=== PATIENT | male | born 1995 ===

== ENCOUNTER 2017-03-23 17:42 | Inpatient (IN) | payer MEDICAID ==
[2017-03-23 17:53] VITALS: BMI 29.5
[2017-03-23] MEDS ORDERED: Sodium Chloride 0.9% 1,000 ML IV STA (18:08)
--- NOTE | 2017-03-23 18:16 | ED PDOC ---
Arrival/HPI - General Chief Complaint: Abdominal Pain Time Seen by Provider: 03/23/17 17:56 Historian: Patient - History of Present Illness Narrative History of Present Illness (Text): 03/23/17 18:03 Zach Martinez is a 22 year old male who presents to the emergency department complaining of abdominal pain associated with blood streaked vomit and weakness for the past two days. Patient also notes that he feels dizzy at times since yesterday. Patient denies any diarrhea, hematochezia, fever, vomiting, urinary symptoms, or any other complaints at this time. PMD: Dr. Condon Time/Duration: < week Symptom Onset: Gradual Symptom Course: Unchanged Severity Level: Moderate Activities at Onset: Rest Context: Home Past Medical History - Provider Review Nursing Documentation Reviewed: Yes - Infectious Disease Hx of Infectious Diseases: None - Psychiatric Hx Substance Use: Yes - Anesthesia Hx Anesthesia: No Family/Social History - Physician Review Nursing Documentation Reviewed: Yes Family/Social History: No Known Family HX Smoking Status: Never Smoked Hx Alcohol Use: Yes Frequency of alcohol use: Socially Hx Substance Use: Yes Substance used: marijuana Allergies/Home Meds Allergies/Adverse Reactions: Allergies No Known Allergies Allergy (Verified 03/23/17 17:52) Home Medications: Home Meds Medication Instructions Recorded Confirmed Multivitamin [Multivitamins] 1 cap PO DAILY 03/23/17 03/23/17 Review of Systems - Physician Review All systems were reviewed & negative as marked: Yes - Review of Systems Constitutional: Other (Generalized weakness) Eyes: absent: Vision Changes ENT: absent: Hearing Changes Respiratory: absent: SOB Cardiovascular: absent: Chest Pain Gastrointestinal: Abdominal Pain, Hematemesis Genitourinary Male: absent: Dysuria Musculoskeletal: absent: Arthralgias Skin: absent: Rash Neurological: absent: Headache, Dizziness Endocrine: absent: Diaphoresis Hemo/Lymphatic: absent: Adenopathy Psychiatric: absent: Anxiety Physical Exam Vital Signs Reviewed: Yes Vital Signs Temp Pulse Resp BP Pulse Ox 03/23/17 21:42 72 18 130/82 100 03/23/17 17:54 98.8 F 70 18 132/85 100 Temperature: Afebrile Blood Pressure: Normal Pulse: Regular Respiratory Rate: Normal Appearance: Positive for: Ill-Appearing Pain Distress: Mild Mental Status: Positive for: Alert and Oriented X 3 - Systems Exam Head: Present: Atraumatic, Normocephalic Pupils: Present: PERRL Conjunctiva: Present: Normal Mouth: Present: Moist Mucous Membranes Pharnyx: Present: Normal. No: ERYTHEMA, EXUDATE Neck: Present: Normal Range of Motion Respiratory/Chest: Present: Clear to Auscultation, Good Air Exchange. No: Respiratory Distress, Accessory Muscle Use Cardiovascular: Present: Regular Rate and Rhythm, Normal S1, S2. No: Murmurs Abdomen: Present: Tenderness (diffuse abdominal tenderness to palpation) Back: Present: Normal Inspection Upper Extremity: Present: Normal Inspection. No: Cyanosis, Edema Lower Extremity: Present: Normal Inspection. No: Edema Neurological: Present: GCS=15, CN II-XII Intact, Speech Normal Skin: Present: Warm, Dry, Normal Color. No: Rashes Psychiatric: Present: Alert, Oriented x 3, Normal Insight, Normal Concentration Medical Decision Making ED Course and Treatment: 03/23/17 18:03 Impression: 22 year old male complaining of diffuse abdominal pain with associated hematemesis, syncopal symptoms, and weakness for a few days. Plan: -- Abdomen and Pelvis CT with contrast -- Urinalysis -- Labs -- Pepcid, Zofran, and IV fluids -- Reassess and disposition Progress Notes: 03/23/17 21:[address] with contrast: Creator : Praveen Alan MD FINDINGS: Lower thorax: No acute findings. ABDOMEN: Liver: Unremarkable. No mass. Gallbladder and bile ducts: No calcified stones. No ductal dilation. Pancreas: No ductal dilation. No mass. Spleen: No splenomegaly. Adrenals: No mass. Kidneys and ureters: 1.1 x 1.1 x 1.1 cm lesion within RIGHT kidney, indeterminate by CT criteria. No hydronephrosis. Stomach and bowel: Mild mural thickening vs underdistention distal body/antrum of stomach. No definite bowel wall thickening. No obstruction. Appendix: Borderline enlarged appendix, 6-7 mm in diameter. No associated inflammatory stranding. PELVIS: Bladder: Unremarkable. Reproductive: Unremarkable as visualized. ABDOMEN and PELVIS: Intraperitoneal space: No significant fluid collection. No free air. Bones/joints: No acute fracture. Soft tissues: Unremarkable. Vasculature: Unremarkable. No aneurysm. Lymph nodes: No pathologically enlarged lymph nodes. IMPRESSION: 1. Borderline enlarged appendix. No inflammation. Clinical correlation is needed. 2. Gastric wall thickening vs underdistention. Clinical correlation is needed. 3. Kidney lesion, indeterminate. Recommend nonemergent ultrasound or MRI. 4. Incidental/non-acute findings are described above. 03/23/17 22:35 Patient with noted history. Given zofran, pepcid, and IVF with no improvement in pain though improved nausea. Labs with WBC of 9.9K with neutrophilia. CT results with enlarged appendix though periappendiceal area appears uninflamed. Patient continuing to be tender in the RLQ, specifically. Case discussed with surgical supply assistant, who evaluated the patient. 03/23/17 22:39 Patient will be placed on Dr. Crocker's service. IV antibiotics administered. - Lab Interpretations Lab Results: 03/23/17 18:35 03/23/17 18:35 Lab Results 03/23/17 18:35: Sodium 140, Potassium 3.9, Chloride 100, Carbon Dioxide 30, Anion Gap 14, BUN 15, Creatinine 1.0, Est GFR ( Amer) > 60, Est GFR (Non- Af Amer) > 60, Random Glucose 86, Calcium 9.4, Total Bilirubin 0.7, AST 27, ALT 27, Alkaline Phosphatase 61, Total Protein 7.5, Albumin 4.3, Globulin 3.2, Albumin/Globulin Ratio 1.3, Amylase 79, Lipase 18 L 03/23/17 18:35: Urine Color Yellow, Urine Appearance Clear, Urine pH 6.5, Ur Specific [place] 1.010, Urine Protein Negative, Urine Glucose (UA) Negative, Urine Ketones 15 H, Urine Blood Negative, Urine Nitrate Negative, Urine Bilirubin Negative, Urine Urobilinogen 0.2, Ur Leukocyte Esterase Negative 03/23/17 18:35: PT 11.3, INR 1.05, APTT 28.7 03/23/17 18:35: WBC 9.9, RBC 5.22, Hgb 16.2, Hct 45.8, MCV 87.7, MCH 31.0, MCHC 35.4, RDW 12.5, Plt Count 286, MPV 9.3, Gran % 73.0 H, Lymph % (Auto) 19.5 L, [place] % (Auto) 6.7 H, Eos % (Auto) 0.6 L, Baso % (Auto) 0.2, Gran # 7.20 H, Lymph # 1.9, [place] # 0.7 H, Eos # 0.1, Baso # 0.02 I have reviewed the lab results: Yes - RAD Interpretation Radiology Orders: 03/23/17 18:09 ABD & PELVIS IV CONTRAST ONLY [CT] Stat - Medication Orders Current Medication Orders: Metronidazole (Flagyl) 100 mls @ 100 mls/hr IVPB STAT STA PRN Reason: Protocol Stop: 03/23/17 23:24 Ceftriaxone Sodium (Rocephin 1 Gram Ivpb) 100 mls @ 200 mls/hr IV ONCE STA PRN Reason: Protocol Stop: 03/23/17 22:54 Discontinued Medications Famotidine (Pepcid) 20 mg IVP STAT STA Stop: 03/23/17 18:09 Last Admin: 03/23/17 18:47 Dose: 20 mg Sodium Chloride (Sodium Chloride 0.9%) 1,000 mls @ 1,000 mls/hr IV .Q1H STA Stop: 03/23/17 19:07 Last Admin: 03/23/17 18:46 Dose: 1,000 mls/hr Iohexol (Omnipaque 350 100 Ml) Confirm Administered Dose 350 mg .ROUTE .STK-MED ONE Stop: 03/23/17 20:09 Ondansetron HCl (Zofran Inj) 4 mg IVP STAT STA Stop: 03/23/17 18:10 Last Admin: 03/23/17 18:47 Dose: 4 mg - Scribe Statement The provider has reviewed the documentation as recorded by the Lisa Caballero Provider Scribe Attestation: All medical record entries made by the Lisa were at my direction and personally dictated by me. I have reviewed the chart and agree that the record accurately reflects my personal performance of the history, physical exam, medical decision making, and the department course for this patient. I have also personally directed, reviewed, and agree with the discharge instructions and disposition. Disposition/Present on Arrival - Present on Arrival Any Indicators Present on Arrival: No History of DVT/PE: No History of Uncontrolled Diabetes: No Urinary Catheter: No History of Decub. Ulcer: No History Surgical Site Infection Following: None - Disposition Have Diagnosis and Disposition been Completed?: Yes Diagnosis: Appendicitis Disposition: HOSPITALIZED Disposition Time: 22:20 Patient Plan: Observation Condition: FAIR Referrals: Tex Condon, ANSELMO, CLINICAL SERVICES ASSISTANT [Primary Care Provider] - Follow up with primary
[2017-03-23 18:49] LABS: ADD MANUAL DIFF? NO
[2017-03-23 18:55] LABS: BASO # 0.02 K/mm3 (0.0-2.0); BASO % 0.2 % (0.0-3.0); EOS # 0.1 (0.0-0.7); EOS % 0.6 % (1.5-5.0); HEMATOCRIT 45.8 % (42.0-52.0); LYMPH # 1.9 (1.2-3.4); LYMPH % 19.5 % (22.0-35.0); MEAN CELL VOLUME 87.7 fL (80.0-105.0); MEAN CORPUSCULAR HGB CONC 35.4 g/dl (31.0-37.0); MEAN PLATELET VOLUME 9.3 fl (7.0-11.0); MONO # 0.7 (0.1-0.6); MONO % 6.7 % (1.0-6.0); PLATELET COUNT 286 10^3/uL (120.0-450.0); RED CELL DISTRIBUTION WIDTH 12.5 % (11.5-14.5); WHITE BLOOD COUNT 9.9 10^3/ul (4.5-11.0)
[2017-03-23 19:01] LABS: INR 1.05 (0.93-1.08); PARTIAL THROMBOPLASTIN TIME 28.7 Seconds (23.7-30.8)
[2017-03-23 19:05] LABS: ALB/GLOB RATIO 1.3 (1.1-1.8); ALKALINE PHOSPHATASE 61 U/L (38-133); ALT/SGPT 27 U/L (7-56); AMYLASE 79 U/L (35-125); AST/SGOT 27 U/L (15-59); BILIRUBIN,TOTAL 0.7 mg/dL (0.2-1.3); BLOOD UREA NITROGEN 15 mg/dL (7-21); CALCIUM 9.4 mg/dL (8.4-10.5); CARBON DIOXIDE 30 mmol/L (21-33); CHLORIDE 100 mmol/L (98-107); GFR AFRICAN-AMERICAN > 60; GLUCOSE,RANDOM 86 mg/dL (70-110); LIPASE 18 U/L (23-300); POTASSIUM 3.9 mmol/L (3.6-5.0); SODIUM 140 mmol/L (132-148); TOTAL PROTEIN 7.5 g/dL (5.8-8.3)
[2017-03-23] MEDS ORDERED: Iohexol 350 MG/100 ML VIAL ONE (20:08)
--- NOTE | 2017-03-23 21:11 | CT ---
EXAM: CT Abdomen and Pelvis With Intravenous Contrast CLINICAL HISTORY: 22 years old, male; Pain; Abdominal pain; Acute; Additional info: Abd pain, vomiting TECHNIQUE: Axial computed tomography images of the abdomen and pelvis with intravenous contrast. This CT exam was performed using one or more of the following dose reduction techniques: automated exposure control, adjustment of the mA and/or kV according to patient size, and/or use of iterative reconstruction technique. Coronal and sagittal reformatted images were created and reviewed. CONTRAST: 100 mL of OMNI 350 administered intravenously. COMPARISON: No relevant prior studies available. FINDINGS: Lower thorax: No acute findings. ABDOMEN: Liver: Unremarkable. No mass. Gallbladder and bile ducts: No calcified stones. No ductal dilation. Pancreas: No ductal dilation. No mass. Spleen: No splenomegaly. Adrenals: No mass. Kidneys and ureters: 1.1 x 1.1 x 1.1 cm lesion within RIGHT kidney, indeterminate by CT criteria. No hydronephrosis. Stomach and bowel: Mild mural thickening vs underdistention distal body/antrum of stomach. No definite bowel wall thickening. No obstruction. Appendix: Borderline enlarged appendix, 6-7 mm in diameter. No associated inflammatory stranding. PELVIS: Bladder: Unremarkable. Reproductive: Unremarkable as visualized. ABDOMEN and PELVIS: Intraperitoneal space: No significant fluid collection. No free air. Bones/joints: No acute fracture. Soft tissues: Unremarkable. Vasculature: Unremarkable. No aneurysm. Lymph nodes: No pathologically enlarged lymph nodes. IMPRESSION: 1. Borderline enlarged appendix. No inflammation. Clinical correlation is needed. 2. Gastric wall thickening vs underdistention. Clinical correlation is needed. 3. Kidney lesion, indeterminate. Recommend nonemergent ultrasound or MRI. 4. Incidental/non-acute findings are described above.
[2017-03-23 22:19] LABS: PH,URINE 6.5 (4.7-8.0); URINE BILIRUBIN NEGATIVE (NEGATIVE); URINE BLOOD NEGATIVE (NEGATIVE); URINE GLUCOSE (UA) NEGATIVE (NEGATIVE); URINE KETONE 15 mg/dL (NEGATIVE); URINE LEUKOCYTE ESTERASE NEGATIVE Leu/uL (NEGATIVE); URINE PROTEIN NEGATIVE mg/dL (<30 mg/dL); URINE UROBILINOGEN 0.2 E.U./dL (<1 E.U./dL)
[2017-03-23 22:25] LABS: URINE APPEARANCE CLEAR (CLEAR); URINE COLOR YELLOW (YELLOW)
[2017-03-23] MEDS ORDERED: metroNIDAZOLE IV 500 mg/100 ml 500 MG/100 ML BAG IVPB STA (22:25)
[2017-03-23] MEDS ORDERED: cefTRIAXone 1 gm 1 GM/100 ML BAG IV STA (22:25)
--- NOTE | 2017-03-23 23:13 | CP.PCM.HP ---
History of Present Illness - History of Present Illness History of Present Illness: SURGERY HISTORY AND PHYSICAL 22M presents to [facility] for abdominal pain that started on Wednesday. Patient states the pain was diffused but more towards the center of his abdomen. He states the pain never went away but was increasing in intensity during this period of time. He states the pain is associated with nausea/ vomiting. Vomit content includes lots of clear fluid with some blood tinge. He denies eating anything out the ordinary, denies trauma, denies fevers, diarrhea , constipation. Upon coming to the ED he states the pain is more on the right lower abdomen now. PMH: denies PSH: denies Social: Admits social alcohol, denies tobacco abuse Allergies: NKDA Present on Admission - Present on Admission Any Indicators Present on Admission: No Past Patient History - Infectious Disease Hx of Infectious Diseases: None - Past Social History Smoking Status: Never Smoked - PSYCHIATRIC Hx Substance Use: Yes - SURGICAL HISTORY Hx Surgeries: No - ANESTHESIA Hx Anesthesia: No Meds Allergies/Adverse Reactions: Allergies Allergy/AdvReac Type Severity Reaction Status Date / Time No Known Allergies Allergy Verified 03/23/17 17:52 Physical Exam - Constitutional Appears: Non-toxic, No Acute Distress - Head Exam Head Exam: ATRAUMATIC - Eye Exam Eye Exam: EOMI, PERRL - ENT Exam ENT Exam: Mucous Membranes Moist - Respiratory Exam Respiratory Exam: Clear to Auscultation Bilateral, NORMAL BREATHING PATTERN - Cardiovascular Exam Cardiovascular Exam: REGULAR RHYTHM, +S1, +S2 - GI/Abdominal Exam GI & Abdominal Exam: Soft, Tenderness (moderate tenderness mainly in RLQ). absent: Distended, Firm, Guarding, Rebound, Rigid Additional comments: mcburney's tenderpoint, positive obturator sign - Extremities Exam Additional comments: UE tattoes - Neurological Exam Neurological exam: Alert, Oriented x3 - Psychiatric Exam Psychiatric exam: Normal Affect, Normal Mood - Skin Skin Exam: Dry, Intact, Normal Color, Warm Results - Vital Signs Recent Vital Signs: Last Vital Signs Temp 98.8 F 03/23/17 17:54 Pulse 72 03/23/17 21:42 Resp 18 03/23/17 21:42 BP 130/82 03/23/17 21:42 Pulse Ox 100 03/23/17 21:42 - Labs Result Diagrams: 03/23/17 18:35 03/23/17 18:35 Labs: Laboratory Results - last 24 hr 03/23/17 03/23/17 03/23/17 18:35 18:35 18:35 WBC 9.9 RBC 5.22 Hgb 16.2 Hct 45.8 MCV 87.7 MCH 31.0 MCHC 35.4 RDW 12.5 Plt Count 286 MPV 9.3 Gran % 73.0 H Lymph % (Auto) 19.5 L [place] % (Auto) 6.7 H Eos % (Auto) 0.6 L Baso % (Auto) 0.2 Gran # 7.20 H Lymph # 1.9 [place] # 0.7 H Eos # 0.1 Baso # 0.02 PT 11.3 INR 1.05 APTT 28.7 Sodium Potassium Chloride Carbon Dioxide Anion Gap BUN Creatinine Est GFR ( Amer) Est GFR (Non-Af Amer) Random Glucose Calcium Total Bilirubin AST ALT Alkaline Phosphatase Total Protein Albumin Globulin Albumin/Globulin Ratio Amylase Lipase Urine Color Yellow Urine Appearance Clear Urine pH 6.5 Ur Specific [place] 1.010 Urine Protein Negative Urine Glucose (UA) Negative Urine Ketones 15 H Urine Blood Negative Urine Nitrate Negative Urine Bilirubin Negative Urine Urobilinogen 0.2 Ur Leukocyte Esterase Negative 03/23/17 18:35 WBC RBC Hgb Hct MCV MCH MCHC RDW Plt Count MPV Gran % Lymph % (Auto) [place] % (Auto) Eos % (Auto) Baso % (Auto) Gran # Lymph # [place] # Eos # Baso # PT INR APTT Sodium 140 Potassium 3.9 Chloride 100 Carbon Dioxide 30 Anion Gap 14 BUN 15 Creatinine 1.0 Est GFR ( Amer) > 60 Est GFR (Non-Af Amer) > 60 Random Glucose 86 Calcium 9.4 Total Bilirubin 0.7 AST 27 ALT 27 Alkaline Phosphatase 61 Total Protein 7.5 Albumin 4.3 Globulin 3.2 Albumin/Globulin Ratio 1.3 Amylase 79 Lipase 18 L Urine Color Urine Appearance Urine pH Ur Specific [place] Urine Protein Urine Glucose (UA) Urine Ketones Urine Blood Urine Nitrate Urine Bilirubin Urine Urobilinogen Ur Leukocyte Esterase Assessment & Plan - Assessment and Plan (Free Text) Assessment: 22[address]: enlarged appendix. gastric wall thickening vs under-distension, likely under -distension from vomiting Plan: - NPO, Abx, IVF - Pain control, anti-emetic - Pre-op patient - Consent/book for OR Discussed with Dr. Obi Nunez, PGY2
[2017-03-24] MEDS: Morphine 4 mg/ml ISec IVP PRN ×4 (01:20→21:19)
[2017-03-24] MEDS: Dextrose 5%/0.45% NS 1,000 ML IV SCH ×2 (06:08→06:09)
[2017-03-24 07:20] LABS: HEMATOCRIT 46.9 % (42.0-52.0); MEAN CELL VOLUME 87.8 fL (80.0-105.0); MEAN CORPUSCULAR HEMOGLOBIN 30.5 pg (25.0-35.0); MEAN CORPUSCULAR HGB CONC 34.8 g/dl (31.0-37.0); MEAN PLATELET VOLUME 9.2 fl (7.0-11.0); RED CELL DISTRIBUTION WIDTH 12.5 % (11.5-14.5)
[2017-03-24] MEDS ORDERED: HYDROmorphone 0.5 mg/0.5 ml ISec IVP PRN ×2 (07:32→10:26)
[2017-03-24] MEDS ORDERED: Lactated Ringer's 1,000 ML IV SCH (07:32)
[2017-03-24] MEDS ORDERED: Bupivacaine 0.5% Inj(30mL) ONE (07:39)
[2017-03-24] MEDS ORDERED: Midazolam 2 MG/2 ML VIAL ONE (07:52)
[2017-03-24] MEDS ORDERED: Propofol 10 mg/ml Inj (20 ML) ONE (07:52)
[2017-03-24] MEDS ORDERED: Rocuronium 10 mg/ml (5 ml) ONE (07:57)
[2017-03-24] MEDS ORDERED: Morphine 4 mg/ml ISec ONE ×2 (09:11→10:08)
[2017-03-24] MEDS ORDERED: 0.125% Bupivacaine in 0.9% NS 750mL On Q Dual pump IJ ONE (09:33)
[2017-03-24] MEDS: Piperacillin/Tazobact 3.375 gm Inj IVPB ONE ×2 (09:45→10:01)
[2017-03-24] MEDS ORDERED: Glycopyrrolate 0.2 mg/ml (2ml vial) ONE (09:50)
[2017-03-24] MEDS ORDERED: HYDROmorphone 0.5 mg/0.5 ml ISec ONE ×3 (10:29→10:59)
[2017-03-24] MEDS ORDERED: HYDROmorphone 0.5 mg/0.5 ml ISec IVP ONE ×3 (10:29→11:00)
--- NOTE | 2017-03-24 10:42 | PCM.SURG1 ---
Surgeon's Initial Post Op Note - Surgeon's Notes Surgeon: Dr. Crocker Pie Chef: Dr. Cabrera PGy3; Dr. Wilkes PGy2; Dr. Velazquez PGy1 Type of Anesthesia: General Endo Anesthesia Administered By: Darrin Pre-Operative Diagnosis: acute appendicitis Operative Findings: see operative report Post-Operative Diagnosis: same Operation Performed: Laparoscopic converted to Open appendectomy. Sigmoid resection Specimen/Specimens Removed: appendix, segment of sigmoid colon Estimated Blood Loss: EBL {In ML}: 5 Blood Products Given: N/A Drains Used: Carlo Post-Op Condition: Good Date of Surgery/Procedure: 03/24/17 Time of Surgery/Procedure: 10:42
[2017-03-24] MEDS: Lactated Ringer's 1,000 ML IV SCH ×2 (11:48→17:39)
[2017-03-24] MEDS ORDERED: HYDROmorphone 0.5 mg/0.5 ml ISec IVP STA (14:00)
[2017-03-24] MEDS: 0.125% Bupivacaine in 0.9% NS 750mL On Q Dual pump IJ SCH (17:24)
[2017-03-24] MEDS: Piperacillin/Tazobact 3.375 gm 100 ML IVPB SCH ×2 (17:38→23:31)
--- NOTE | 2017-03-25 01:27 | OP ---
PROCEDURE DATE: 03/24/2017 PREOPERATIVE DIAGNOSIS: Acute appendicitis. POSTOPERATIVE DIAGNOSIS: Acute appendicitis, pending pathology. PROCEDURE: Exploratory laparotomy, appendectomy, and resection of the sigmoid colon. SURGEON: Dr. Crocker. CLINICAL LAW PROFESSOR: Dr. Cabrera. DESCRIPTION OF PROCEDURE: In the operating room, the patient was identified by name, name of procedure, laterality, and after the successful timeout with the Dunham and endotracheal tube, the abdomen was prepped and draped. A supraumbilical incision was made through skin and subcutaneous tissues. The Veress needle was placed without incident, and 2 liters of CO2 were insufflated to pressure about 10. The Visiport was then placed without incident. Looking around, we saw the apparent appendix, going in to the apparent cecum. During the dissection, lifting up, we tore the tenia from the sigmoid colon, tried to repair it with a PARDEEP after dissection. There was no contamination, but I felt uncomfortable with the repair and the patient was opened. This was done after we placed 2 left lower quadrant suprapubic and a left lower quadrant 5 mm. The abdomen was entered. There was a tear in the sigmoid consistent with the discussion above. A small segment was removed using a small clamp for dissection. Both ends were divided with a PARDEEP and the mesentery taken with a harmonic. The perioperative antibiotics were given, the wounds were packed, soaks were placed from the two ends. There was clearly enough room of the sigmoid, which is a redundant. Soak was placed and were taken through the bowel, GIAs were run in after ascertaining the length. The ends were pulled up nicely and this was fired. There was a good anastomosis. The incision was closed with and TA60. There was no contamination. It was reinforced with several silks. This was packed away and a drain was placed. The cecum was then mobilized again and brought up into the wound. The appendix was clamped, brought up into the wound and taken with a TA 30. The mesentery was taken with the Harmonic, removed as separate specimen. The abdomen was cleaned and drained, there was no contamination. On-Q was placed on both sides. The incision, which was somewhat paramedian, was closed with running #1 PDS above and below, tied in the middle. The incision was closed with Vicryl and stanislaw. The patient was taken to the recovery room in good condition. Sponge, needle, and counts were correct. While the patient was in recovery, I spoke to the mother and I believe the father, but I am not sure, who the second gentleman was, but I spoke to him and told him that there was an incident involving the colon and resection was done. Alton Crocker MD
[2017-03-25] MEDS: 0.125% Bupivacaine in 0.9% NS 750mL On Q Dual pump IJ SCH (01:53)
[2017-03-25] MEDS: Morphine 4 mg/ml ISec IVP PRN ×3 (01:53→13:41)
[2017-03-25] MEDS: Piperacillin/Tazobact 3.375 gm 100 ML IVPB SCH ×4 (05:52→23:42)
[2017-03-25 06:51] LABS: ADD MANUAL DIFF? NO
[2017-03-25 07:19] LABS: ALB/GLOB RATIO 1.2 (1.1-1.8); ALKALINE PHOSPHATASE 59 U/L (38-133); ALT/SGPT 24 U/L (7-56); AST/SGOT 19 U/L (15-59); BILIRUBIN,TOTAL 0.9 mg/dL (0.2-1.3); BLOOD UREA NITROGEN 9 mg/dL (7-21); CALCIUM 9.2 mg/dL (8.4-10.5); CARBON DIOXIDE 31 mmol/L (21-33); CHLORIDE 100 mmol/L (98-107); GFR AFRICAN-AMERICAN > 60; GLUCOSE,RANDOM 97 mg/dL (70-110); POTASSIUM 4.3 mmol/L (3.6-5.0); SODIUM 139 mmol/L (132-148); TOTAL PROTEIN 6.5 g/dL (5.8-8.3)
[2017-03-25 07:32] LABS: BASO # 0.02 K/mm3 (0.0-2.0); BASO % 0.1 % (0.0-3.0); GRAN # 11.89 (1.4-6.5); GRAN % 76.7 % (50.0-68.0); LYMPH # 1.8 (1.2-3.4); LYMPH % 11.3 % (22.0-35.0); MEAN CELL VOLUME 88.1 fL (80.0-105.0); MEAN CORPUSCULAR HEMOGLOBIN 30.2 pg (25.0-35.0); MEAN CORPUSCULAR HGB CONC 34.3 g/dl (31.0-37.0); MEAN PLATELET VOLUME 9.3 fl (7.0-11.0); MONO # 1.8 (0.1-0.6); MONO % 11.9 % (1.0-6.0); PLATELET COUNT 301 10^3/uL (120.0-450.0); RED CELL DISTRIBUTION WIDTH 12.7 % (11.5-14.5); WHITE BLOOD COUNT 15.5 10^3/ul (4.5-11.0)
[2017-03-25 07:53] LABS: HEMATOCRIT 43.7 % (42.0-52.0)
--- NOTE | 2017-03-25 08:43 | CP.PCM.PN ---
Subjective - Date & Time of Evaluation Date of Evaluation: 03/25/17 Time of Evaluation: 08:32 - Subjective Subjective: General Surgery - Dr. Crocker Pt. S&E. FRANK. Pt initially sleeping but complains of abdominal pain when he wakes up. He has been receiving morphine throughout the night q4h for pain. On -Q is also in place at 7cc/hr. Pt tolerated some liquids yesterday. No N/V, F/ C, SOb/CP. Dunham catheter with clear yellow urine. Laurita drain w/ 10cc serosanguinous drainage overnight. Objective - Vital Signs/Intake and Output Vital Signs (last 24 hours): Temp Pulse Resp BP Pulse Ox 97.9 F 81 18 122/79 96 03/25/17 07:30 03/25/17 07:30 03/25/17 07:30 03/25/17 07:30 03/25/17 07:30 Intake and Output: 03/25/17 03/25/17 06:59 18:59 Intake Total 120 Output Total 1400 2009 Balance -1280 -2009 - Medications Medications: Current Medications Famotidine (Pepcid) 20 mg IVP DAILY [facility] Last Admin: 03/24/17 11:46 Dose: 20 mg Heparin Sodium (Porcine) (Heparin) 5,000 units SC Q12 [facility] PRN Reason: Protocol Lactated Ringer's (Lactated Ringer's) 1,000 mls @ 125 mls/hr IV .Q8H [facility] Last Admin: 03/24/17 17:39 Dose: 125 mls/hr Piperacillin Sod/Tazobactam Sod (Zosyn 3.375 In Ns 100ml) 100 mls @ 200 mls/hr IVPB Q6 [facility] PRN Reason: Protocol Stop: 03/25/17 12:29 Last Admin: 03/25/17 05:52 Dose: 200 mls/hr Ketorolac Tromethamine (Toradol) 30 mg IVP Q6H [facility] Metoclopramide HCl (Reglan) 10 mg IV ONCE PRN PRN Reason: Nausea/Vomiting Morphine Sulfate (Morphine) 4 mg IVP Q4 PRN PRN Reason: Pain, moderate (4-7) Last Admin: 03/25/17 05:52 Dose: 4 mg Ondansetron HCl (Zofran Inj) 4 mg IVP Q4 PRN PRN Reason: Nausea/Vomiting Last Admin: 03/24/17 20:44 Dose: 4 mg - Labs Labs: 03/25/17 06:30 03/25/17 06:30 PT 11.3 Seconds (9.9-11.8) 03/23/17 18:35 INR 1.05 (0.93-1.08) 03/23/17 18:35 APTT 28.7 Seconds (23.7-30.8) 03/23/17 18:35 - Constitutional Appears: Well, No Acute Distress - Head Exam Head Exam: ATRAUMATIC, NORMAL INSPECTION, NORMOCEPHALIC - Eye Exam Eye Exam: Normal appearance - ENT Exam ENT Exam: Mucous Membranes Moist - Respiratory Exam Respiratory Exam: NORMAL BREATHING PATTERN. absent: Respiratory Distress - Cardiovascular Exam Cardiovascular Exam: REGULAR RHYTHM - GI/Abdominal Exam GI & Abdominal Exam: Soft, Tenderness (appropriately, dressings C/D/I; laurita drain with serosang drainage; On-Q in place). absent: Distended, Guarding, Rigid, Rebound - Neurological Exam Neurological Exam: Alert, Oriented x3 - Psychiatric Exam Psychiatric exam: Normal Affect, Normal Mood - Skin Skin Exam: Dry, Intact Assessment and Plan - Assessment and Plan (Free Text) Assessment: 22 yo M s/p lap converted to open appendectomy with partial sigmoid resection -Continue Liquid diet -D/C Dunham -Toradol q6h scheduled and Morphine q4h prn for pain -OOB to chair today and work with Incentive Spirometer DW Dr. Obi Cabrera PGY3
[2017-03-25] MEDS: Lactated Ringer's 1,000 ML IV SCH ×2 (13:09→13:11)
[2017-03-26] MEDS: Morphine 4 mg/ml ISec IVP PRN ×3 (00:23→23:36)
[2017-03-26] MEDS: Piperacillin/Tazobact 3.375 gm 100 ML IVPB SCH ×4 (05:00→23:35)
--- NOTE | 2017-03-26 06:42 | CP.PCM.PN ---
Subjective - Date & Time of Evaluation Date of Evaluation: 03/26/17 Time of Evaluation: 06:39 - Subjective Subjective: General Surgery Progress note for Dr. Crocker. PT S&E at bedside. Vomitted at 9pm last night after eating liquid diet. Patient admits to burning before urinating. difficulty starting urination. no other acute events overnight. Denies F/C. Admits to abdominal pain. tolerating pain with medication. Tolerating nausea with medication. Denies BM, flatus. Patient states he ambulated yesterday. He was using ISS at time of visit. Objective - Vital Signs/Intake and Output Vital Signs (last 24 hours): Temp Pulse Resp BP Pulse Ox 98.3 F 82 18 123/83 98 03/25/17 16:00 03/25/17 16:00 03/25/17 16:00 03/25/17 16:00 03/25/17 16:00 Intake and Output: 03/25/17 03/26/17 18:59 06:59 Intake Total 360 360 Output Total 2116 75 Balance -1756 285 - Medications Medications: Current Medications Famotidine (Pepcid) 20 mg IVP DAILY [facility] Last Admin: 03/25/17 09:10 Dose: 20 mg Heparin Sodium (Porcine) (Heparin) 5,000 units SC Q12 [facility] PRN Reason: Protocol Last Admin: 03/25/17 21:51 Dose: 5,000 units Lactated Ringer's (Lactated Ringer's) 1,000 mls @ 125 mls/hr IV .Q8H [facility] Last Admin: 03/25/17 13:11 Dose: Not Given Piperacillin Sod/Tazobactam Sod (Zosyn 3.375 In Ns 100ml) 100 mls @ 200 mls/hr IVPB Q6 [facility] PRN Reason: Protocol Stop: 04/03/17 18:01 Last Admin: 03/26/17 05:00 Dose: 200 mls/hr Ketorolac Tromethamine (Toradol) 30 mg IVP Q6H [facility] Last Admin: 03/26/17 02:19 Dose: 30 mg Morphine Sulfate (Morphine) 4 mg IVP Q4 PRN PRN Reason: Pain, moderate (4-7) Last Admin: 03/26/17 05:00 Dose: 4 mg Ondansetron HCl (Zofran Inj) 4 mg IVP Q4 PRN PRN Reason: Nausea/Vomiting Last Admin: 03/26/17 05:04 Dose: 4 mg - Labs Labs: 03/25/17 06:30 03/25/17 06:30 PT 11.3 Seconds (9.9-11.8) 03/23/17 18:35 INR 1.05 (0.93-1.08) 03/23/17 18:35 APTT 28.7 Seconds (23.7-30.8) 03/23/17 18:35 - Constitutional Appears: No Acute Distress - Head Exam Head Exam: NORMAL INSPECTION, NORMOCEPHALIC - Eye Exam Eye Exam: EOMI, Normal appearance - ENT Exam ENT Exam: Mucous Membranes Moist - Respiratory Exam Respiratory Exam: NORMAL BREATHING PATTERN. absent: Accessory Muscle Use, Respiratory Distress - Cardiovascular Exam Cardiovascular Exam: REGULAR RHYTHM. absent: Bradycardia, Tachycardia - GI/Abdominal Exam GI & Abdominal Exam: Soft, Tenderness, Hypoactive Bowel Sounds. absent: Guarding - Extremities Exam Extremities Exam: Full ROM, Normal Capillary Refill, Normal Inspection. absent : Pedal Edema, Tenderness - Skin Skin Exam: Dry, Normal Color, Warm Additional comments: dressings c/d/i. Tenderness on palpation. no drainage. - Additional Findings Additional findings: 75 cc sanguinous, overnight laurita drainage
[2017-03-26] MEDS ORDERED: Oxycodone/Acetaminophen 5/325 mg Tab PO PRN (06:53)
[2017-03-26] MEDS: Dextrose 5%/0.45% NS 1,000 ML IV SCH ×2 (08:21→17:22)
[2017-03-26 10:12] LABS: ADD MANUAL DIFF? NO
[2017-03-26 10:17] LABS: BASO # 0.02 K/mm3 (0.0-2.0); BASO % 0.2 % (0.0-3.0); EOS % 0.2 % (1.5-5.0); GRAN # 9.52 (1.4-6.5); GRAN % 73.4 % (50.0-68.0); LYMPH # 2.2 (1.2-3.4); LYMPH % 16.6 % (22.0-35.0); MEAN CELL VOLUME 89.5 fL (80.0-105.0); MEAN CORPUSCULAR HEMOGLOBIN 30.4 pg (25.0-35.0); MEAN PLATELET VOLUME 8.9 fl (7.0-11.0); MONO # 1.2 (0.1-0.6); MONO % 9.6 % (1.0-6.0); PLATELET COUNT 255 10^3/uL (120.0-450.0); RED CELL DISTRIBUTION WIDTH 12.7 % (11.5-14.5)
[2017-03-26 10:33] LABS: ALKALINE PHOSPHATASE 50 U/L (38-133); ALT/SGPT 24 U/L (7-56); AST/SGOT 18 U/L (15-59); BILIRUBIN,TOTAL 0.5 mg/dL (0.2-1.3); BLOOD UREA NITROGEN 10 mg/dL (7-21); CARBON DIOXIDE 30 mmol/L (21-33); CHLORIDE 101 mmol/L (98-107); GFR AFRICAN-AMERICAN > 60; GLUCOSE,RANDOM 107 mg/dL (70-110); SODIUM 138 mmol/L (132-148)
[2017-03-27] MEDS: Dextrose 5%/0.45% NS 1,000 ML IV SCH ×2 (03:31→16:26)
[2017-03-27] MEDS: Morphine 4 mg/ml ISec IVP PRN ×2 (03:32→20:16)
[2017-03-27] MEDS: Simethicone 80 mg Chewtab PO PRN (03:33)
[2017-03-27] MEDS: 0.125% Bupivacaine in 0.9% NS 750mL On Q Dual pump IJ SCH (04:51)
[2017-03-27] MEDS: Piperacillin/Tazobact 3.375 gm 100 ML IVPB SCH ×4 (06:02→23:28)
--- NOTE | 2017-03-27 08:44 | CP.PCM.PN ---
Subjective - Date & Time of Evaluation Date of Evaluation: 03/27/17 Time of Evaluation: 08:39 - Subjective Subjective: General Surgery - Dr. Crocker Pt S&E. FRANK. Pt has incisional abdominal pain, appropriate post-op, significantly helped with the abdominal binder. He has been OOB and ambulating. He is passing flatus. Tolerating full liquid diet. NO F/C, SOb/ Cp. Objective - Vital Signs/Intake and Output Vital Signs (last 24 hours): Temp Pulse Resp BP Pulse Ox 98.3 F 68 20 119/74 97 03/27/17 08:04 03/27/17 08:04 03/27/17 08:04 03/27/17 08:04 03/27/17 08:04 Intake and Output: 03/27/17 03/27/17 06:59 18:59 Intake Total 480 Output Total 113 110 Balance 367 -110 - Medications Medications: Current Medications Famotidine (Pepcid) 20 mg IVP DAILY [facility] Last Admin: 03/26/17 11:11 Dose: 20 mg Heparin Sodium (Porcine) (Heparin) 5,000 units SC Q12 [facility] PRN Reason: Protocol Last Admin: 03/26/17 23:37 Dose: 5,000 units Piperacillin Sod/Tazobactam Sod (Zosyn 3.375 In Ns 100ml) 100 mls @ 200 mls/hr IVPB Q6 MAC PRN Reason: Protocol Stop: 04/03/17 18:01 Last Admin: 03/27/17 06:02 Dose: 200 mls/hr Dextrose/Sodium Chloride (Dextrose 5%/0.45% Ns 1000 Ml) 1,000 mls @ 100 mls/hr IV .Q10H [facility] Last Admin: 03/27/17 03:31 Dose: 100 mls/hr Ketorolac Tromethamine (Toradol) 30 mg IVP Q6H [facility] Last Admin: 03/27/17 03:34 Dose: 30 mg Morphine Sulfate (Morphine) 4 mg IVP Q4 PRN PRN Reason: Pain, severe (8-10) Last Admin: 03/27/17 03:32 Dose: 4 mg Ondansetron HCl (Zofran Inj) 4 mg IVP Q4 PRN PRN Reason: Nausea/Vomiting Last Admin: 03/26/17 05:04 Dose: 4 mg Oxycodone/Acetaminophen (Percocet 5/325 Mg Tab) 1 tab PO Q4H PRN PRN Reason: Pain, moderate (4-7) Stop: 03/29/17 06:54 Simethicone (Mylicon Chew Tab) 80 mg PO Q4 PRN PRN Reason: gas/bloating Last Admin: 03/27/17 03:33 Dose: 80 mg - Labs Labs: 03/26/17 09:30 03/26/17 09:30 PT 11.3 Seconds (9.9-11.8) 03/23/17 18:35 INR 1.05 (0.93-1.08) 03/23/17 18:35 APTT 28.7 Seconds (23.7-30.8) 03/23/17 18:35 - Constitutional Appears: No Acute Distress - Head Exam Head Exam: ATRAUMATIC, NORMAL INSPECTION, NORMOCEPHALIC - Eye Exam Eye Exam: Normal appearance - Respiratory Exam Respiratory Exam: NORMAL BREATHING PATTERN. absent: Respiratory Distress - GI/Abdominal Exam GI & Abdominal Exam: Soft, Tenderness (appropriate post op tenderness). absent : Distended, Guarding Additional comments: laurita drain in rlq with ~100cc serous drainage - Neurological Exam Neurological Exam: Alert, Oriented x3 - Psychiatric Exam Psychiatric exam: Normal Affect, Normal Mood - Skin Skin Exam: Dry, Intact Assessment and Plan - Assessment and Plan (Free Text) Assessment: 22 yo M s/p lap converted to open appendectomy with partial sigmoid resection, POD #3 -continue liquids and may have soft diet later today -F/U CBC -Continue Abx -Encourage OOB and Incentive Spirometer -Overall doing well post-op DW Dr. Obi Cabrera PGY3
[2017-03-27 09:46] LABS: ADD MANUAL DIFF? NO
[2017-03-27 09:48] LABS: BASO # 0.01 K/mm3 (0.0-2.0); BASO % 0.1 % (0.0-3.0); EOS # 0.1 (0.0-0.7); EOS % 1.7 % (1.5-5.0); GRAN # 5.37 (1.4-6.5); GRAN % 70.6 % (50.0-68.0); HEMATOCRIT 39.8 % (42.0-52.0); LYMPH # 1.5 (1.2-3.4); LYMPH % 20.2 % (22.0-35.0); MEAN CORPUSCULAR HEMOGLOBIN 30.5 pg (25.0-35.0); MEAN CORPUSCULAR HGB CONC 33.9 g/dl (31.0-37.0); MEAN PLATELET VOLUME 8.8 fl (7.0-11.0); MONO # 0.6 (0.1-0.6); MONO % 7.4 % (1.0-6.0); PLATELET COUNT 259 10^3/uL (120.0-450.0); RED CELL DISTRIBUTION WIDTH 12.7 % (11.5-14.5); WHITE BLOOD COUNT 7.6 10^3/ul (4.5-11.0)
[2017-03-27] MEDS ORDERED: Oxycodone/Acetaminophen 5/325 mg Tab PO PRN (22:02)
[2017-03-28] MEDS: 0.125% Bupivacaine in 0.9% NS 750mL On Q Dual pump IJ SCH (04:13)
[2017-03-28] MEDS: Piperacillin/Tazobact 3.375 gm 100 ML IVPB SCH ×4 (05:19→23:31)
[2017-03-28 07:44] LABS: ADD MANUAL DIFF? NO
[2017-03-28 07:52] LABS: BASO # 0.01 K/mm3 (0.0-2.0); BASO % 0.1 % (0.0-3.0); EOS # 0.3 (0.0-0.7); EOS % 3.6 % (1.5-5.0); GRAN # 4.43 (1.4-6.5); HEMATOCRIT 39.3 % (42.0-52.0); LYMPH # 1.8 (1.2-3.4); LYMPH % 25.4 % (22.0-35.0); MEAN CELL VOLUME 88.1 fL (80.0-105.0); MEAN CORPUSCULAR HEMOGLOBIN 30.3 pg (25.0-35.0); MEAN CORPUSCULAR HGB CONC 34.4 g/dl (31.0-37.0); MEAN PLATELET VOLUME 8.8 fl (7.0-11.0); MONO # 0.5 (0.1-0.6); MONO % 6.9 % (1.0-6.0); PLATELET COUNT 269 10^3/uL (120.0-450.0); RED CELL DISTRIBUTION WIDTH 12.4 % (11.5-14.5); WHITE BLOOD COUNT 6.9 10^3/ul (4.5-11.0)
[2017-03-28 08:13] LABS: ALB/GLOB RATIO 1.1 (1.1-1.8); ALKALINE PHOSPHATASE 78 U/L (38-133); ALT/SGPT 54 U/L (7-56); AST/SGOT 40 U/L (15-59); BILIRUBIN,TOTAL 0.5 mg/dL (0.2-1.3); BLOOD UREA NITROGEN 6 mg/dL (7-21); CALCIUM 8.8 mg/dL (8.4-10.5); CARBON DIOXIDE 29 mmol/L (21-33); CHLORIDE 101 mmol/L (95-110); GFR AFRICAN-AMERICAN > 60; GLUCOSE,RANDOM 89 mg/dL (70-110); POTASSIUM 3.5 mmol/L (3.6-5.0); SODIUM 138 mmol/L (132-148); TOTAL PROTEIN 6.3 g/dL (5.8-8.3)
--- NOTE | 2017-03-28 09:59 | CP.PCM.PN ---
Subjective - Date & Time of Evaluation Date of Evaluation: 03/28/17 Time of Evaluation: 09:56 - Subjective Subjective: General Surgery Note Resident: Caroline Attending: Obi HPI: Patient seen and examined at bedside. Doing well with no complaints at this time. +flatus/+BM. Walking around. Still in moderate amount of pain, especially when passing gas. Tolerating diet. -N/V/F/SOB/CP Objective - Vital Signs/Intake and Output Vital Signs (last 24 hours): Temp Pulse Resp BP Pulse Ox 97.8 F 60 16 112/74 99 03/28/17 07:26 03/28/17 07:26 03/28/17 07:26 03/28/17 07:26 03/28/17 07:26 Intake and Output: 03/28/17 03/28/17 06:59 18:59 Intake Total 480 Output Total 160 110 Balance 320 -110 - Medications Medications: Current Medications Docusate Sodium (Colace) 100 mg PO BID [facility] Last Admin: 03/27/17 17:56 Dose: 100 mg Famotidine (Pepcid) 20 mg IVP DAILY [facility] Last Admin: 03/27/17 09:28 Dose: 20 mg Heparin Sodium (Porcine) (Heparin) 5,000 units SC Q12 [facility] PRN Reason: Protocol Last Admin: 03/27/17 23:25 Dose: 5,000 units Piperacillin Sod/Tazobactam Sod (Zosyn 3.375 In Ns 100ml) 100 mls @ 200 mls/hr IVPB Q6 [facility] PRN Reason: Protocol Stop: 04/03/17 18:01 Last Admin: 03/28/17 05:19 Dose: 200 mls/hr Ketorolac Tromethamine (Toradol) 30 mg IVP Q6H [facility] Last Admin: 03/28/17 09:13 Dose: Not Given Morphine Sulfate (Morphine) 4 mg IVP Q4 PRN PRN Reason: Pain, severe (8-10) Last Admin: 03/27/17 20:16 Dose: 4 mg Ondansetron HCl (Zofran Inj) 4 mg IVP Q4 PRN PRN Reason: Nausea/Vomiting Last Admin: 03/26/17 05:04 Dose: 4 mg Oxycodone/Acetaminophen (Percocet 5/325 Mg Tab) 2 tab PO Q4H PRN PRN Reason: Pain, moderate (4-7) Stop: 03/29/17 06:54 Last Admin: 03/28/17 07:33 Dose: 2 tab Simethicone (Mylicon Chew Tab) 80 mg PO Q4 PRN PRN Reason: gas/bloating Last Admin: 03/27/17 03:33 Dose: 80 mg - Labs Labs: 03/28/17 07:43 03/28/17 07:43 PT 11.3 Seconds (9.9-11.8) 03/23/17 18:35 INR 1.05 (0.93-1.08) 03/23/17 18:35 APTT 28.7 Seconds (23.7-30.8) 03/23/17 18:35 - Constitutional Appears: Well, No Acute Distress - Eye Exam Eye Exam: EOMI - ENT Exam ENT Exam: Mucous Membranes Moist - Respiratory Exam Respiratory Exam: Clear to Ausculation Bilateral - Cardiovascular Exam Cardiovascular Exam: REGULAR RHYTHM - GI/Abdominal Exam GI & Abdominal Exam: Soft, Tenderness (mild tenderness around incision/drain site. Incision C/D/I. no evidence of infection. Binder in place). absent: Distended, Firm Assessment and Plan - Assessment and Plan (Free Text) Assessment: 22 y/o Male s/p lap appy converted to open w/ sigmoid resection * Pulled EMILY * Regular diet * ISC, SCD, OOB * adequate pain control and can reassess for discharge * RENE Velazquez DO PGY-1
[2017-03-28] MEDS ORDERED: Potassium Chloride 20 mEq ER Tab PO ONE (16:07)
[2017-03-28] MEDS ORDERED: Benzocaine/Menthol (Cepacol) Lozenge MT PRN (18:27)
[2017-03-28] MEDS: Morphine 4 mg/ml ISec IVP PRN (23:30)
[2017-03-28] MEDS: Simethicone 80 mg Chewtab PO PRN (23:47)
[2017-03-29] MEDS: Piperacillin/Tazobact 3.375 gm 100 ML IVPB SCH ×4 (05:17→23:42)
--- NOTE | 2017-03-29 08:51 | CP.PCM.PN ---
Subjective - Date & Time of Evaluation Date of Evaluation: 03/29/17 Time of Evaluation: 07:40 - Subjective Subjective: Surgery Progress Note: Dr. Crocker Patient seen and examined at bedside. No acute events overnight. Patient states c/o intermittent nausea and has abdominal discomfort near incision sites. + flatus/+BM. Ambulatory without overt difficulty. Tolerating diet. Negative V/F/ SOB/CP. Objective - Vital Signs/Intake and Output Vital Signs (last 24 hours): Temp Pulse Resp BP Pulse Ox 98.3 F 55 L 18 138/81 100 03/28/17 16:50 03/28/17 16:50 03/28/17 16:50 03/28/17 16:50 03/28/17 16:50 Intake and Output: 03/29/17 03/29/17 06:59 18:59 Intake Total 360 Output Total 1 Balance 359 - Medications Medications: Current Medications Benzocaine/Menthol (Cepacol Sore Throat) 1 marycruz MT Q2H PRN PRN Reason: Sore Throat Docusate Sodium (Colace) 100 mg PO BID [facility] Last Admin: 03/28/17 18:27 Dose: Not Given Famotidine (Pepcid) 20 mg IVP DAILY [facility] Last Admin: 03/28/17 10:08 Dose: 20 mg Heparin Sodium (Porcine) (Heparin) 5,000 units SC Q12 [facility] PRN Reason: Protocol Last Admin: 03/28/17 23:31 Dose: Not Given Piperacillin Sod/Tazobactam Sod (Zosyn 3.375 In Ns 100ml) 100 mls @ 200 mls/hr IVPB Q6 [facility] PRN Reason: Protocol Stop: 04/03/17 18:01 Last Admin: 03/29/17 05:17 Dose: 200 mls/hr Morphine Sulfate (Morphine) 4 mg IVP Q4 PRN PRN Reason: Pain, severe (8-10) Last Admin: 03/28/17 23:30 Dose: 4 mg Ondansetron HCl (Zofran Inj) 4 mg IVP Q4 PRN PRN Reason: Nausea/Vomiting Last Admin: 03/28/17 23:40 Dose: 4 mg Simethicone (Mylicon Chew Tab) 80 mg PO Q4 PRN PRN Reason: gas/bloating Last Admin: 03/28/17 23:47 Dose: 80 mg - Labs Labs: 03/28/17 07:43 03/28/17 07:43 PT 11.3 Seconds (9.9-11.8) 03/23/17 18:35 INR 1.05 (0.93-1.08) 03/23/17 18:35 APTT 28.7 Seconds (23.7-30.8) 03/23/17 18:35 - Additional Findings Additional findings: - Constitutional Appears: Well, No Acute Distress - Eye Exam Eye Exam: EOMI - ENT Exam ENT Exam: Mucous Membranes Moist - Respiratory Exam Respiratory Exam: Clear to Ausculation Bilateral - Cardiovascular Exam Cardiovascular Exam: REGULAR RHYTHM - GI/Abdominal Exam GI & Abdominal Exam: Soft, Tenderness (mild tenderness around incision/drain site. Incision C/D/I. no evidence of infection. Binder in place). absent: Distended, Firm Assessment and Plan - Assessment and Plan (Free Text) Assessment: 22 y/o Male s/p lap appy converted to open w/ sigmoid resection * Regular diet * IS * OOB * adequate pain control * Appreciate ID recs Will discuss with Dr. Crocker.
--- NOTE | 2017-03-29 15:44 | CP.PCM.CON ---
<Ryann Meyers - Last Filed: 03/29/17 17:09> History of Present Illness - History of Present Illness History of Present Illness: PGY-[address] Kendall ID Consult: streptococcus mitis bacteremia r/o Endocarditis 22 M presents to ER on 03/23/17 (last ) for abdominal pain associated with blood streak vomit and weakness x 2 days. Abdominal pain started on the prior Wednesday. The abdominal pain was diffused but more towards the center of his abdomen, then shifted to the RLQ at ED. He states the pain never went away and has increased in intensity. (+) associated with nausea/vomiting. Vomit content includes lots of clear fluid with some blood tinge. Pt denies IV drug use, denies being bitten by human. No prosthetic device. No childhood heart problem Upon ED arrival, VSS. CBC, CMP unremarkable. CT abdomine and pelvis with IV contrast showed (1) 6-7mm enlarged appendix with no periappendiceal area uninflammed. (2) Gastric wall thickening vs underdistension (likely vomit induced). (3) Kidkey lesion possible, 1.1 x 1.1 x 1.1 cm lesion within RIGHT kidney. Pt had acute appendicitis and was started on ceftriazone and flagyl x 1. On 03/24, pt was started on zosyn, blood culture (+) streptococcus mitis bacteremia. On the same day, He had laparoscopic converted to open appendectomy and sigmoid resection. On-Q, Carlo drain, and martinez was placed. Martinez was removed on POD#2. On 03/26, pt complained dysuria and vomited on liquid diet. He has incisional abdominal pain on abdominal binder and pain med. +BM on 03/28. On regular diet. OOB. Today is zosyn day 6. Today, POD #5, pt has intermittent nausea and has abdominal discomfort near incision sites. Denies. Dysuria Denies fevers, chills, CP, SON, diarrhea, constipation. PMH: Childhood Asthma, resolved PSH: Root canal, R Mandibular molar, 2016 FH: Mom - COPD, HTN, DM, HLD SH: 2 beer and 1 shot of hard liquor every week denies tobacco abuse (+) marijuana, last use Wednesday before hospital admission. 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 Past Patient History - Infectious Disease Hx of Infectious Diseases: None - Past Social History Smoking Status: Current Some Days Smoker - CARDIAC Hx Cardiac Disorders: No - PULMONARY Hx Respiratory Disorders: No - NEUROLOGICAL Hx Neurological Disorder: No - HEENT Hx HEENT Problems: No - RENAL Hx Chronic Kidney Disease: No - ENDOCRINE/METABOLIC Hx Endocrine Disorders: No - HEMATOLOGICAL/ONCOLOGICAL Hx Blood Transfusions: No Hx Blood Transfusion Reaction: No - INTEGUMENTARY Hx Dermatological Problems: No - MUSCULOSKELETAL/RHEUMATOLOGICAL Hx Musculoskeletal Disorders: No - GASTROINTESTINAL Hx Gastrointestinal Disorders: No - GENITOURINARY/GYNECOLOGICAL Hx Genitourinary Disorders: No - PSYCHIATRIC Hx Substance Use: Yes - SURGICAL HISTORY Hx Surgeries: No - ANESTHESIA Hx Anesthesia Reactions: No Hx Malignant Hyperthermia: No Meds Allergies/Adverse Reactions: Allergies Allergy/AdvReac Type Severity Reaction Status Date / Time No Known Allergies Allergy Verified 03/23/17 17:52 - Medications Medications: Current Medications Benzocaine/Menthol (Cepacol Sore Throat) 1 marycruz MT Q2H PRN PRN Reason: Sore Throat Docusate Sodium (Colace) 100 mg PO BID [facility] Last Admin: 03/29/17 09:47 Dose: Not Given Famotidine (Pepcid) 20 mg IVP DAILY [facility] Last Admin: 03/29/17 09:43 Dose: 20 mg Heparin Sodium (Porcine) (Heparin) 5,000 units SC Q12 [facility] PRN Reason: Protocol Last Admin: 03/29/17 09:43 Dose: 5,000 units Piperacillin Sod/Tazobactam Sod (Zosyn 3.375 In Ns 100ml) 100 mls @ 200 mls/hr IVPB Q6 [facility] PRN Reason: Protocol Stop: 04/03/17 18:01 Last Admin: 03/29/17 13:10 Dose: 200 mls/hr Morphine Sulfate (Morphine) 4 mg IVP Q4 PRN PRN Reason: Pain, severe (8-10) Last Admin: 03/28/17 23:30 Dose: 4 mg Ondansetron HCl (Zofran Inj) 4 mg IVP Q4 PRN PRN Reason: Nausea/Vomiting Last Admin: 03/28/17 23:40 Dose: 4 mg Simethicone (Mylicon Chew Tab) 80 mg PO Q4 PRN PRN Reason: gas/bloating Last Admin: 03/28/17 23:47 Dose: 80 mg Physical Exam - Constitutional Appears: No Acute Distress - Head Exam Head Exam: ATRAUMATIC, NORMAL INSPECTION, NORMOCEPHALIC - Eye Exam Eye Exam: EOMI, Normal appearance, PERRL Pupil Exam: NORMAL ACCOMODATION Additional comments: Normal dentition - ENT Exam ENT Exam: Mucous Membranes Moist - Neck Exam Neck exam: Negative for: Meningismus - Respiratory Exam Respiratory Exam: Clear to Auscultation Bilateral, NORMAL BREATHING PATTERN. absent: Rales, Rhonchi, Wheezes - Cardiovascular Exam Cardiovascular Exam: REGULAR RHYTHM, +S1, +S2. absent: Clicks, Systolic Murmur - GI/Abdominal Exam GI & Abdominal Exam: Soft, Tenderness Additional comments: on abdominal binder - Extremities Exam Extremities exam: Positive for: normal capillary refill, pedal edema (slight b/l ), pedal pulses present. Negative for: calf tenderness - Back Exam Back exam: absent: CVA tenderness (L), CVA tenderness (R) - Neurological Exam Neurological exam: Alert, CN II-XII Intact, Oriented x3 Additional comments: Motor sensory grossly intact - Psychiatric Exam Psychiatric exam: Normal Affect, Normal Mood - Skin Skin Exam: Dry, Warm Results - Vital Signs Recent Vital Signs: Last Vital Signs Temp 98.2 F 03/29/17 08:50 Pulse 69 03/29/17 08:50 Resp 18 03/29/17 08:50 BP 133/72 03/29/17 08:50 Pulse Ox 98 03/29/17 08:50 - Labs Result Diagrams: 03/28/17 07:43 03/28/17 07:43 Assessment & Plan - Assessment and Plan (Free Text) Plan: 22M admitted for acute appendicitis s/p open appendectomy and sigmoid resection. On the day of surgery, blood culture was drawn and 2 bottles were both were positive for streptococcus mitis. Pt had root canal 1 month ago. Streptococcus Mitis bacteremia R/O Endocarditis - Russell major 1 - viridans streptococci (Streptococcus mitis) - Minor - ? - Echocardiogram to r/o vegetation - repeat blood culture today - Pending HIV testing - Will target ABX tomorrow S/R/D/w Dr. Kendall. - Date & Time Date: 03/29/17 Time: 17:10 <Alex Kendall S - Last Filed: 03/30/17 10:56> Meds - Medications Medications: Current Medications Benzocaine/Menthol (Cepacol Sore Throat) 1 marycruz MT Q2H PRN PRN Reason: Sore Throat Docusate Sodium (Colace) 100 mg PO BID [facility] Last Admin: 03/29/17 18:38 Dose: 100 mg Famotidine (Pepcid) 20 mg IVP DAILY [facility] Last Admin: 03/29/17 09:43 Dose: 20 mg Heparin Sodium (Porcine) (Heparin) 5,000 units SC Q12 [facility] PRN Reason: Protocol Last Admin: 03/29/17 21:44 Dose: Not Given Piperacillin Sod/Tazobactam Sod (Zosyn 3.375 In Ns 100ml) 100 mls @ 200 mls/hr IVPB Q6 [facility] PRN Reason: Protocol Stop: 04/03/17 18:01 Last Admin: 03/30/17 05:06 Dose: 200 mls/hr Ondansetron HCl (Zofran Inj) 4 mg IVP Q4 PRN PRN Reason: Nausea/Vomiting Last Admin: 03/30/17 01:57 Dose: 4 mg Simethicone (Mylicon Chew Tab) 80 mg PO Q4 PRN PRN Reason: gas/bloating Last Admin: 03/29/17 23:42 Dose: 80 mg Tramadol HCl (Ultram) 50 mg PO Q4 PRN PRN Reason: Pain, moderate (4-7) Results - Vital Signs Recent Vital Signs: Last Vital Signs Temp 97.9 F 03/30/17 07:45 Pulse 78 03/30/17 07:45 Resp 16 03/30/17 07:45 BP 130/75 03/30/17 07:45 Pulse Ox 99 03/30/17 07:45 - Labs Result Diagrams: 03/30/17 08:20 03/30/17 08:20 Labs: Laboratory Results - last 24 hr 03/30/17 03/30/17 08:20 08:20 WBC 9.0 D RBC 4.54 Hgb 13.8 L Hct 40.4 L MCV 89.0 MCH 30.4 MCHC 34.2 RDW 12.4 Plt Count 291 MPV 9.0 Gran % 65.6 Lymph % (Auto) 23.5 [place] % (Auto) 8.7 H Eos % (Auto) 2.1 Baso % (Auto) 0.1 Gran # 5.90 Lymph # 2.1 [place] # 0.8 H Eos # 0.2 Baso # 0.01 Sodium 141 Potassium 4.4 Chloride 102 Carbon Dioxide 30 Anion Gap 13 BUN 15 Creatinine 1.2 Est GFR ( Amer) > 60 Est GFR (Non-Af Amer) > 60 Random Glucose 76 Calcium 9.4 Total Bilirubin 0.5 AST 48 ALT 69 H Alkaline Phosphatase 60 Total Protein 6.0 Albumin 3.3 Globulin 2.7 Albumin/Globulin Ratio 1.2 Assessment & Plan - Assessment and Plan (Free Text) Plan: Attending Attestation: Patient seen and examined, discussed with bio medical technician. Reviewed HPI, medical histories, personal and social histories, physical exam. I agree with the above findings. In addition, patient has Step mitis bacteremia, probably associated with dental work (root canal done recently and patient has dental caries). Should rule out endocarditis - will follow up 2D echo. Will continue Zosyn for now, for this patient with acute appendicitis S/P appendectomy POD # 7. Duration of antibiotics will depend on echo results. - Date & Time Date: 03/30/17 Time: 10:56
[2017-03-29] MEDS: Simethicone 80 mg Chewtab PO PRN (23:42)
[2017-03-30] MEDS: Morphine 4 mg/ml ISec IVP PRN (01:56)
[2017-03-30] MEDS: Piperacillin/Tazobact 3.375 gm 100 ML IVPB SCH ×3 (05:06→19:29)
--- NOTE | 2017-03-30 08:27 | CP.PCM.PN ---
<Ryann Meyers - Last Filed: 03/30/17 10:47> Subjective - Date & Time of Evaluation Date of Evaluation: 03/30/17 Time of Evaluation: 08:26 - Subjective Subjective: PGY-[address] Kendall No acute event overnight. Pt ambulate along hallway with steady gait. (+) Abdominal pain upon straining Objective - Vital Signs/Intake and Output Vital Signs (last 24 hours): Temp Pulse Resp BP Pulse Ox 97.9 F 78 16 130/75 99 03/30/17 07:45 03/30/17 07:45 03/30/17 07:45 03/30/17 07:45 03/30/17 07:45 Intake and Output: 03/30/17 03/30/17 06:59 18:59 Intake Total 600 Balance 600 - Medications Medications: Current Medications Benzocaine/Menthol (Cepacol Sore Throat) 1 marycruz MT Q2H PRN PRN Reason: Sore Throat Docusate Sodium (Colace) 100 mg PO BID [facility] Last Admin: 03/29/17 18:38 Dose: 100 mg Famotidine (Pepcid) 20 mg IVP DAILY [facility] Last Admin: 03/29/17 09:43 Dose: 20 mg Heparin Sodium (Porcine) (Heparin) 5,000 units SC Q12 [facility] PRN Reason: Protocol Last Admin: 03/29/17 21:44 Dose: Not Given Piperacillin Sod/Tazobactam Sod (Zosyn 3.375 In Ns 100ml) 100 mls @ 200 mls/hr IVPB Q6 [facility] PRN Reason: Protocol Stop: 04/03/17 18:01 Last Admin: 03/30/17 05:06 Dose: 200 mls/hr Morphine Sulfate (Morphine) 4 mg IVP Q4 PRN PRN Reason: Pain, severe (8-10) Last Admin: 03/30/17 01:56 Dose: 4 mg Ondansetron HCl (Zofran Inj) 4 mg IVP Q4 PRN PRN Reason: Nausea/Vomiting Last Admin: 03/30/17 01:57 Dose: 4 mg Simethicone (Mylicon Chew Tab) 80 mg PO Q4 PRN PRN Reason: gas/bloating Last Admin: 03/29/17 23:42 Dose: 80 mg - Labs Labs: 03/28/17 07:43 03/28/17 07:43 PT 11.3 Seconds (9.9-11.8) 03/23/17 18:35 INR 1.05 (0.93-1.08) 03/23/17 18:35 APTT 28.7 Seconds (23.7-30.8) 03/23/17 18:35 - Constitutional Appears: No Acute Distress - Head Exam Head Exam: ATRAUMATIC, NORMAL INSPECTION, NORMOCEPHALIC - Eye Exam Eye Exam: EOMI, Normal appearance, PERRL - Neck Exam Neck Exam: Full ROM, Normal Inspection. absent: Lymphadenopathy - Respiratory Exam Respiratory Exam: Clear to Ausculation Bilateral, NORMAL BREATHING PATTERN - Cardiovascular Exam Cardiovascular Exam: REGULAR RHYTHM, +S1, +S2. absent: Murmur - GI/Abdominal Exam GI & Abdominal Exam: Soft, Tenderness (along incision site, on abd binder), Normal Bowel Sounds - Extremities Exam Extremities Exam: Normal Capillary Refill, Pedal Edema (slight b/l). absent: Calf Tenderness - Neurological Exam Neurological Exam: Alert, Awake, Oriented x3 - Psychiatric Exam Psychiatric exam: Normal Affect, Normal Mood - Skin Skin Exam: Dry, Warm Assessment and Plan - Assessment and Plan (Free Text) Plan: Mr. Zach Martinez ([id number]), 22M admitted for acute appendicitis s/p open appendectomy and sigmoid resection. On the day of surgery, blood culture was drawn and 2 bottles were both were positive for streptococcus mitis. Pt had root canal 1 month ago. Streptococcus Mitis bacteremia R/O Endocarditis - Russell major 1 - viridans streptococci (Streptococcus mitis) - Minor - ? - Pending Echocardiogram to r/o vegetation - repeat blood culture received yesterday - Pending HIV testing - Will target ABX today S/R/D/w Dr. Kendall. <Alex Kendall S - Last Filed: 03/30/17 10:59> Objective - Vital Signs/Intake and Output Vital Signs (last 24 hours): Temp Pulse Resp BP Pulse Ox 97.9 F 78 16 130/75 99 03/30/17 07:45 03/30/17 07:45 03/30/17 07:45 03/30/17 07:45 03/30/17 07:45 Intake and Output: 03/30/17 03/30/17 06:59 18:59 Intake Total 600 Balance 600 - Medications Medications: Current Medications Benzocaine/Menthol (Cepacol Sore Throat) 1 marycruz MT Q2H PRN PRN Reason: Sore Throat Docusate Sodium (Colace) 100 mg PO BID [facility] Last Admin: 03/29/17 18:38 Dose: 100 mg Famotidine (Pepcid) 20 mg IVP DAILY [facility] Last Admin: 03/29/17 09:43 Dose: 20 mg Heparin Sodium (Porcine) (Heparin) 5,000 units SC Q12 [facility] PRN Reason: Protocol Last Admin: 03/29/17 21:44 Dose: Not Given Piperacillin Sod/Tazobactam Sod (Zosyn 3.375 In Ns 100ml) 100 mls @ 200 mls/hr IVPB Q6 [facility] PRN Reason: Protocol Stop: 04/03/17 18:01 Last Admin: 03/30/17 05:06 Dose: 200 mls/hr Ondansetron HCl (Zofran Inj) 4 mg IVP Q4 PRN PRN Reason: Nausea/Vomiting Last Admin: 03/30/17 01:57 Dose: 4 mg Simethicone (Mylicon Chew Tab) 80 mg PO Q4 PRN PRN Reason: gas/bloating Last Admin: 03/29/17 23:42 Dose: 80 mg Tramadol HCl (Ultram) 50 mg PO Q4 PRN PRN Reason: Pain, moderate (4-7) - Labs Labs: 03/30/17 08:20 03/30/17 08:20 PT 11.3 Seconds (9.9-11.8) 03/23/17 18:35 INR 1.05 (0.93-1.08) 03/23/17 18:35 APTT 28.7 Seconds (23.7-30.8) 03/23/17 18:35 Assessment and Plan - Assessment and Plan (Free Text) Plan: Attending Attestation: Patient seen and examined, discussed with medical imaging technologist. Consult of medical imaging technologist also reviewed and signed. Agree with above findings. In addition, we will follow up 2D echo results for Step mitis bacteremia R/O endocarditis in this patient with acute appendicitis S/P appendectomy POD #7.
[2017-03-30 08:29] LABS: ADD MANUAL DIFF? NO
[2017-03-30 08:34] LABS: BASO # 0.01 K/mm3 (0.0-2.0); BASO % 0.1 % (0.0-3.0); EOS # 0.2 (0.0-0.7); EOS % 2.1 % (1.5-5.0); GRAN % 65.6 % (50.0-68.0); HEMATOCRIT 40.4 % (42.0-52.0); LYMPH # 2.1 (1.2-3.4); LYMPH % 23.5 % (22.0-35.0); MEAN CORPUSCULAR HEMOGLOBIN 30.4 pg (25.0-35.0); MEAN CORPUSCULAR HGB CONC 34.2 g/dl (31.0-37.0); MONO # 0.8 (0.1-0.6); MONO % 8.7 % (1.0-6.0); PLATELET COUNT 291 10^3/uL (120.0-450.0); RED CELL DISTRIBUTION WIDTH 12.4 % (11.5-14.5)
--- NOTE | 2017-03-30 08:37 | CP.PCM.PN ---
Subjective - Date & Time of Evaluation Date of Evaluation: 03/30/17 Time of Evaluation: 07:25 - Subjective Subjective: Patient seen and examined at bedside. States that he is experiencing mild abdominal discomfort. Tolerating diet. Denies fever, chills, chest pain, SOB, N/ V. Objective - Vital Signs/Intake and Output Vital Signs (last 24 hours): Temp Pulse Resp BP Pulse Ox 97.9 F 78 16 130/75 99 03/30/17 07:45 03/30/17 07:45 03/30/17 07:45 03/30/17 07:45 03/30/17 07:45 Intake and Output: 03/30/17 03/30/17 06:59 18:59 Intake Total 600 Balance 600 - Medications Medications: Current Medications Benzocaine/Menthol (Cepacol Sore Throat) 1 marycruz MT Q2H PRN PRN Reason: Sore Throat Docusate Sodium (Colace) 100 mg PO BID [facility] Last Admin: 03/29/17 18:38 Dose: 100 mg Famotidine (Pepcid) 20 mg IVP DAILY [facility] Last Admin: 03/29/17 09:43 Dose: 20 mg Heparin Sodium (Porcine) (Heparin) 5,000 units SC Q12 MAC PRN Reason: Protocol Last Admin: 03/29/17 21:44 Dose: Not Given Piperacillin Sod/Tazobactam Sod (Zosyn 3.375 In Ns 100ml) 100 mls @ 200 mls/hr IVPB Q6 MAC PRN Reason: Protocol Stop: 04/03/17 18:01 Last Admin: 03/30/17 05:06 Dose: 200 mls/hr Morphine Sulfate (Morphine) 4 mg IVP Q4 PRN PRN Reason: Pain, severe (8-10) Last Admin: 03/30/17 01:56 Dose: 4 mg Ondansetron HCl (Zofran Inj) 4 mg IVP Q4 PRN PRN Reason: Nausea/Vomiting Last Admin: 03/30/17 01:57 Dose: 4 mg Simethicone (Mylicon Chew Tab) 80 mg PO Q4 PRN PRN Reason: gas/bloating Last Admin: 03/29/17 23:42 Dose: 80 mg - Labs Labs: 03/28/17 07:43 03/28/17 07:43 PT 11.3 Seconds (9.9-11.8) 03/23/17 18:35 INR 1.05 (0.93-1.08) 03/23/17 18:35 APTT 28.7 Seconds (23.7-30.8) 03/23/17 18:35 - Additional Findings Additional findings: - Constitutional Appears: No Acute Distress - Head Exam Head Exam: ATRAUMATIC, NORMAL INSPECTION, NORMOCEPHALIC - Eye Exam Eye Exam: EOMI - ENT Exam ENT Exam: Mucous Membranes Moist - Respiratory Exam Respiratory Exam: Clear to Auscultation Bilateral, NORMAL BREATHING PATTERN. absent: Rales, Rhonchi, Wheezes - Cardiovascular Exam Cardiovascular Exam: REGULAR RHYTHM, +S1, +S2. absent: Clicks, Systolic Murmur - GI/Abdominal Exam GI & Abdominal Exam: Soft, Tenderness Additional comments: on abdominal binder - Psychiatric Exam Psychiatric exam: Normal Affect, Normal Mood Assessment and Plan - Assessment and Plan (Free Text) Assessment: Patient is a 22 male who was admitted for evaluation and treatment of acute appendicitis. He is s/p open appendectomy and sigmoid resection. - pain control - out of bed - IS - possible Streptococcus Mitis bacteremia- waiting repeat cultures - awaiting ECHO - HIV test pending - continue zosyn, await ID recs for antibiotics - will d/w Dr. Crocker
[2017-03-30 08:53] LABS: ALB/GLOB RATIO 1.2 (1.1-1.8); ALKALINE PHOSPHATASE 60 U/L (38-133); ALT/SGPT 69 U/L (7-56); AST/SGOT 48 U/L (15-59); BILIRUBIN,TOTAL 0.5 mg/dL (0.2-1.3); BLOOD UREA NITROGEN 15 mg/dL (7-21); CALCIUM 9.4 mg/dL (8.4-10.5); CARBON DIOXIDE 30 mmol/L (21-33); CHLORIDE 102 mmol/L (95-110); GFR AFRICAN-AMERICAN > 60; GLUCOSE,RANDOM 76 mg/dL (70-110); POTASSIUM 4.4 mmol/L (3.6-5.0); SODIUM 141 mmol/L (132-148)
[2017-03-30] MEDS: Simethicone 80 mg Chewtab PO PRN (14:25)
--- NOTE | 2017-03-30 15:07 | CARD ---
APPROVED REPORT EXAM: Two-dimensional and M-mode echocardiogram with Doppler and color Doppler. INDICATION Infection:Rule out subacute bacterial endocarditis 2D DIMENSIONS Left Atrium (2D)3.6 (1.6-4.0cm)IVSd0.9 (0.7-1.1cm) LVDd5.0 (3.9-5.9cm)PWd1.0 (0.7-1.1cm) LVDs3.4 (2.5-4.0cm)FS (%) 31.6 % LVEF (%)59.3 (>50%) M-Mode DIMENSIONS Aortic Root2.60 (2.2-3.7cm)Aortic Cusp Exc.1.80 (1.5-2.0cm) Aortic Valve AoV Peak Vfrivagr856.0cm/Krishan Peak GR.7mmHg Mitral Valve MV E Ceeharfx04.9cm/sMV A Lccymlri10.8cm/sE/A ratio1.5 TDI E/Lateral E'0.0E/Medial E'0.0 Tricuspid Valve TR Peak [id number]/sRAP [id number] Peak Gr.20mmHg [id number] LEFT VENTRICLE The left ventricle is normal size. There is normal left ventricular wall thickness. The left ventricular function is normal. The left ventricular ejection fraction is within the normal range. There is normal LV segmental wall motion. RIGHT VENTRICLE The right ventricle is normal size. The right ventricular systolic function is normal. ATRIA The left atrium size is normal. The right atrium size is normal. The interatrial septum is intact with no evidence for an atrial septal defect. AORTIC VALVE The aortic valve is normal in structure. No aortic regurgitation is present. There is no aortic valvular vegetation. MITRAL VALVE The mitral valve is normal in structure. Mitral regurgitation is trace. No vegetation is seen on the mitral valve. TRICUSPID VALVE The tricuspid valve is normal in structure. There is mild tricuspid regurgitation. There is no vegetation on the tricuspid valve. PULMONIC VALVE The pulmonary valve is normal in structure. GREAT VESSELS The aortic root is normal in size. The IVC is normal in size and collapses >50% with inspiration. PERICARDIAL EFFUSION There is no pleural effusion. There is no pericardial effusion. <Conclusion> Normal study. No evidence of valvular vegetations seen.
--- NOTE | 2017-03-30 18:11 | CP.PCM.DIS ---
Provider - Provider Date of Admission: 03/23/17 22:42 Attending physician: Alton Crocker MD Primary care physician: Tex Condon, DNP, MEDICAL DEVICE ASSEMBLER Time Spent in preparation of Discharge (in minutes): 45 Diagnosis - Discharge Diagnosis (1) Appendicitis Status: Acute Hospital Course - Lab Results Lab Results: Micro Results 03/29/17 08:30 Blood-Venous Blood Culture - Preliminary NO GROWTH AFTER 24 HOURS 03/29/17 08:40 Blood-Venous Blood Culture - Preliminary NO GROWTH AFTER 24 HOURS 03/26/17 13:20 Urine,Clean Catch Urine Culture - Final No Growth (<1,000 CFU/ML) 03/24/17 00:00 Blood Blood Culture - Final Streptococcus Mitis 03/24/17 00:00 Blood Gram Stain - Final 03/24/17 00:15 Blood S.aureus & Coag-Neg Staph PNA FISH - Final 03/24/17 00:15 Blood Blood Culture - Final Streptococcus Mitis 03/24/17 00:15 Blood Gram Stain - Final Most Recent Lab Values WBC 9.0 10^3/ul (4.5-11.0) D 03/30/17 08:20 RBC 4.54 10^6/uL (3.5-6.1) 03/30/17 08:20 Hgb 13.8 gm/dL (14.0-18.0) L 03/30/17 08:20 Hct 40.4 % (42.0-52.0) L 03/30/17 08:20 MCV 89.0 fL (80.0-105.0) 03/30/17 08:20 MCH 30.4 pg (25.0-35.0) 03/30/17 08:20 MCHC 34.2 g/dl (31.0-37.0) 03/30/17 08:20 RDW 12.4 % (11.5-14.5) 03/30/17 08:20 Plt Count 291 10^3/uL (120.0-450.0) 03/30/17 08:20 MPV 9.0 fl (7.0-11.0) 03/30/17 08:20 Gran % 65.6 % (50.0-68.0) 03/30/17 08:20 Lymph % (Auto) 23.5 % (22.0-35.0) 03/30/17 08:20 [place] % (Auto) 8.7 % (1.0-6.0) H 03/30/17 08:20 Eos % (Auto) 2.1 % (1.5-5.0) 03/30/17 08:20 Baso % (Auto) 0.1 % (0.0-3.0) 03/30/17 08:20 Gran # 5.90 (1.4-6.5) 03/30/17 08:20 Lymph # 2.1 (1.2-3.4) 03/30/17 08:20 [place] # 0.8 (0.1-0.6) H 03/30/17 08:20 Eos # 0.2 (0.0-0.7) 03/30/17 08:20 Baso # 0.01 K/mm3 (0.0-2.0) 03/30/17 08:20 PT 11.3 Seconds (9.9-11.8) 03/23/17 18:35 INR 1.05 (0.93-1.08) 03/23/17 18:35 APTT 28.7 Seconds (23.7-30.8) 03/23/17 18:35 Sodium 141 mmol/L (132-148) 03/30/17 08:20 Potassium 4.4 mmol/L (3.6-5.0) 03/30/17 08:20 Chloride 102 mmol/L (95-110) 03/30/17 08:20 Carbon Dioxide 30 mmol/L (21-33) 03/30/17 08:20 Anion Gap 13 (10-20) 03/30/17 08:20 BUN 15 mg/dL (7-21) 03/30/17 08:20 Creatinine 1.2 mg/dL (0.5-1.4) 03/30/17 08:20 Est GFR ( Amer) > 60 03/30/17 08:20 Est GFR (Non-Af Amer) > 60 03/30/17 08:20 Random Glucose 76 mg/dL (70-110) 03/30/17 08:20 Calcium 9.4 mg/dL (8.4-10.5) 03/30/17 08:20 Total Bilirubin 0.5 mg/dL (0.2-1.3) 03/30/17 08:20 AST 48 U/L (15-59) 03/30/17 08:20 ALT 69 U/L (7-56) H 03/30/17 08:20 Alkaline Phosphatase 60 U/L (38-133) 03/30/17 08:20 Total Protein 6.0 g/dL (5.8-8.3) 03/30/17 08:20 Albumin 3.3 g/dL (3.0-4.8) 03/30/17 08:20 Globulin 2.7 gm/dL 03/30/17 08:20 Albumin/Globulin Ratio 1.2 (1.1-1.8) 03/30/17 08:20 Amylase 79 U/L (35-125) 03/23/17 18:35 Lipase 18 U/L (23-300) L 03/23/17 18:35 Urine Color Yellow (YELLOW) 03/23/17 18:35 Urine Appearance Clear (CLEAR) 03/23/17 18:35 Urine pH 6.5 (4.7-8.0) 03/23/17 18:35 Ur Specific [place] 1.010 (1.005-1.035) 03/23/17 18:35 Urine Protein Negative mg/dL (<30 mg/dL) 03/23/17 18:35 Urine Glucose (UA) Negative mg/dL (NEGATIVE) 03/23/17 18:35 Urine Ketones 15 mg/dL (NEGATIVE) H 03/23/17 18:35 Urine Blood Negative (NEGATIVE) 03/23/17 18:35 Urine Nitrate Negative (NEGATIVE) 03/23/17 18:35 Urine Bilirubin Negative (NEGATIVE) 03/23/17 18:35 Urine Urobilinogen 0.2 E.U./dL (<1 E.U./dL) 03/23/17 18:35 Ur Leukocyte Esterase Negative Shawna/uL (NEGATIVE) 03/23/17 18:35 Blood Type B POSITIVE 03/24/17 07:10 Blood Type Confirm B POSITIVE 03/24/17 07:29 Antibody Screen Negative 03/24/17 07:10 BBK History Checked No verified bt 03/24/17 07:10 - Hospital Course Hospital Course: 22M present emergency department with right lower quadrant pain. CT confirmed diagnosis of acute appendicitis. Pt was then taken to the operating room for a laparoscopic appendectomy. Intraoperatively perforated sigmoid colon was found. surgery then converted to open with infraumblical incision. partial sigmoidectomy was performed. pt left the OR in good condition. Post operatively blood cultures came back positive. Pt kept additional days for positive cultures , appropriate antibiotic coverage, monitor pain levels, vitals and laboratory work. Follow up blood cultures negative. Patient being discharged in good condition. Patient to follow up in one week in office. - Date & Time of H&P Date of H&P: 03/23/17 Time of H&P: 19:00 Discharge Exam - Head Exam Head Exam: ATRAUMATIC, NORMAL INSPECTION, NORMOCEPHALIC - Eye Exam Eye Exam: EOMI - Respiratory Exam Respiratory Exam: NORMAL BREATHING PATTERN. absent: Accessory Muscle Use, Rales , Rhonchi - Cardiovascular Exam Cardiovascular Exam: REGULAR RHYTHM, RRR, +S1, +S2. absent: Gallop, Rubs - GI/Abdominal Exam GI & Abdominal Exam: Normal Bowel Sounds, Soft. absent: Distended, Firm, Guarding, Rigid Additional comments: appropriately tender to palpation around incision site - Rectal Exam Rectal Exam: Deferred - Extremities Exam Extremities exam: full ROM - Neurological Exam Neurological exam: Alert, Normal Gait, Oriented x3 - Psychiatric Exam Psychiatric exam: Normal Affect, Normal Mood - Skin Skin Exam: Normal Color, Warm Discharge Plan - Discharge Medications Prescriptions: levoFLOXacin [Levaquin] 750 mg PO DAILY #21 tab - Follow Up Plan Condition: GOOD Disposition: HOME/ ROUTINE Additional Instructions: follow up one week in Dr. Crocker's office. Referrals: Tex Condon, DNP, MEDICAL DEVICE ASSEMBLER [Primary Care Provider] - Clinical Quality Measures - Date & Time of Discharge Summary Date of Discharge Summary: 03/30/17 Time of Discharge Summary: 18:15
[2017-03-30 20:32] VITALS: BP 112/67; PULSE 66; RESP 18; TEMP 98.3; O2SAT 98
== END 2017-03-30 20:57 | disposition home or self-care (01) | DRG 585 ==
LOC: ED 17:42 → OBSVTOIN 22:42 → ERH 22:42 → 5RNO 03-24 00:24
PROVIDERS: ADMIT Surgery; ATTEND Surgery
PROC: 0DTJ0ZZ Resection of Appendix, Open Approach (ICD-10-PCS; principal; 2017-03-24 07:30)
PROC: 0DTN0ZZ Resection of Sigmoid Colon, Open Approach (ICD-10-PCS; 2017-03-24 07:30)
PROC: 0DJD4ZZ Inspection of Lower Intestinal Tract, Percutaneous Endoscopic Approach (ICD-10-PCS; 2017-03-24 07:30)
DX: K35.80 Unspecified acute appendicitis (principal); R78.81 Bacteremia; K91.71 Accidental puncture and laceration of a digestive system organ or structure during a digestive system procedure; B95.4 Other streptococcus as the cause of diseases classified elsewhere; F12.90 Cannabis use, unspecified, uncomplicated; Z53.31 Laparoscopic surgical procedure converted to open procedure; Y83.6 Removal of other organ (partial) (total) as the cause of abnormal reaction of the patient, or of later complication, without mention of misadventure at the time of the procedure; K02.9 Dental caries, unspecified

== ENCOUNTER 2018-12-07 19:22 | Observation (INO) | payer OTHER, MEDICAID ==
[2018-12-07 19:26] VITALS: BMI 27.2
[2018-12-07] MEDS ORDERED: Morphine 4 mg/ml ISec IVP STA ×2 (19:29→19:52)
[2018-12-07] MEDS ORDERED: Sodium Chloride 0.9% 1,000 ML IV STA ×3 (19:29→20:37)
[2018-12-07] MEDS ORDERED: TDAP Vaccine 0.5 mL Syr IM ONE (19:40)
[2018-12-07 19:42] LABS: BASO # 0.03 K/mm3 (0.0-2.0); BASO % 0.2 % (0.0-3.0); EOS % 0.1 % (1.5-5.0); HEMOGLOBIN 17.1 g/dL (14.0-18.0); LYMPH # 4.1 (1.2-3.4); LYMPH % 24.9 % (22.0-35.0); MEAN CELL VOLUME 90.3 fl (80.0-105.0); MEAN CORPUSCULAR HEMOGLOBIN 31.2 pg (25.0-35.0); MEAN CORPUSCULAR HGB CONC 34.5 g/dl (31.0-37.0); MEAN PLATELET VOLUME 9.5 fl (7.0-11.0); MONO # 0.9 (0.1-0.6); MONO % 5.4 % (1.0-6.0); RBC 5.48 10^6/uL (3.5-6.1); RED CELL DISTRIBUTION WIDTH 12.8 % (11.5-14.5); WHITE BLOOD COUNT 16.3 10^3/uL (4.5-11.0)
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
[2018-12-07 19:51] LABS: INR 1.14; PARTIAL THROMBOPLASTIN TIME 28.7 Seconds (26.9-38.3); PROTHROMBIN TIME 12.6 SECONDS (9.4-12.5)
[2018-12-07 19:59] LABS: ALB/GLOB RATIO 1.4 (1.1-1.8); ALBUMIN 4.7 g/dL (3.0-4.8); ALT/SGPT 18 U/L (7-56); AST/SGOT 31 U/L (17-59); BLOOD UREA NITROGEN 16 mg/dL (7-21); CALCIUM 9.8 mg/dL (8.4-10.5); GFR NON-AFRICAN AMERICAN > 60
[2018-12-07] MEDS ORDERED: Iohexol 350 MG/100 ML VIAL ONE (20:09)
[2018-12-07] MEDS ORDERED: Bupivacaine 0.5% 50 ML IJ ONE (21:15)
[2018-12-07] MEDS ORDERED: Propofol 10 mg/ml Inj (20 ML) ONE ×2 (21:21→21:53)
[2018-12-07] MEDS ORDERED: Midazolam 2 MG/2 ML VIAL ONE (21:21)
[2018-12-07] MEDS ORDERED: Succinylcholine 200 mg/10 ml Inj IV ONE (21:24)
[2018-12-07] MEDS ORDERED: Sevoflurane - Inhalation Anesthetic Liq (250 ml) ONE (21:35)
[2018-12-07] MEDS ORDERED: Bacitracin Ointment 30 GM TUBE ONE (21:47)
[2018-12-07] MEDS ORDERED: Oxycodone/Acetaminophen 5/325 mg Tab PO PRN ×3 (23:16→23:29)
[2018-12-07] MEDS ORDERED: HYDROmorphone 0.5 mg/0.5 ml ISec IVP PRN ×2 (23:22→23:29)
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
[2018-12-07] MEDS ORDERED: Lactated Ringer's 1,000 ML IV SCH ×2 (23:30)
[2018-12-08] MEDS: ceFAZolin IV 2 gm in 50 mL D5W IVPB SCH ×3 (05:42→20:59)
--- NOTE | 2018-12-08 08:01 | CT ---
Date of service: 12/07/2018 PROCEDURE: CT HEAD WITHOUT CONTRAST. HISTORY: headache COMPARISON: None available. TECHNIQUE: Axial computed tomography images were obtained through the head/brain without intravenous contrast. Radiation dose: Total exam DLP = 1047.02 mGy-cm. This CT exam was performed using one or more of the following dose reduction techniques: Automated exposure control, adjustment of the mA and/or kV according to patient size, and/or use of iterative reconstruction technique. FINDINGS: HEMORRHAGE: No intracranial hemorrhage. BRAIN: No mass effect or edema. No atrophy or chronic microvascular ischemic changes. VENTRICLES: Unremarkable. No hydrocephalus. CALVARIUM: Unremarkable. PARANASAL SINUSES: Unremarkable as visualized. No significant inflammatory changes. MASTOID AIR CELLS: Unremarkable as visualized. No inflammatory changes. OTHER FINDINGS: The report concurs with the preliminary [facility] report IMPRESSION: Normal CT of the Head.
[2018-12-08] MEDS: Oxycodone/Acetaminophen 5/325 mg Tab PO PRN ×3 (08:25→16:05)
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
[2018-12-08 09:40] LABS: PH,URINE 6.5 (4.7-8.0); URINE APPEARANCE CLEAR (CLEAR); URINE BILIRUBIN NEGATIVE (NEGATIVE); URINE BLOOD NEGATIVE (NEGATIVE); URINE COLOR YELLOW (YELLOW); URINE GLUCOSE (UA) NEGATIVE (NEGATIVE); URINE LEUKOCYTE ESTERASE NEGATIVE Leu/uL (NEGATIVE); URINE PROTEIN NEGATIVE mg/dL (<30 mg/dL); URINE UROBILINOGEN 0.2 E.U./dL (<1 E.U./dL)
--- NOTE | 2018-12-08 09:44 | CARD ---
APPROVED REPORT Date of service: 12/07/2018 EKG Measurement Heart [id number] <Conclusion> Normal sinus rhythm Normal ECG
[2018-12-08 10:08] LABS: BARBITURATES, UR NEGATIVE (NEGATIVE); BENZODIAZEPINES, UR POSITIVE (NEGATIVE); OPIATES, UR POSITIVE (NEGATIVE); PHENCYCLIDINE, UR NEGATIVE (NEGATIVE)
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
[2018-12-08] MEDS ORDERED: HYDROmorphone 0.5 mg/0.5 ml ISec IVP STA (17:28)
--- NOTE | 2018-12-08 17:58 | CP.PCM.PN ---
Subjective - Date & Time of Evaluation Date of Evaluation: 12/08/18 Time of Evaluation: 17:54 - Subjective Subjective: Called at patient bedside for chills and severe 10/10 pain. Patient was evaluated for distal intact sensation, vitals were obtained, and ROM was assessed. No current signs of compartment syndrome, osteonecrosis, or systemic response/fevers. Patient was given .5 mg Dilaudid, which alleviated all of his symptoms, but patient seems to have drowsiness with Dilaudid. He is going to be put on Morphine 3 q4 MAC as well as Toradol 15 q4 PRN for pain. Patient was placed on morphine s/p appendectomy as well, which is a better regimen for him. VSS, Mental status intact, no signs of infection. Objective - Vital Signs/Intake and Output Vital Signs (last 24 hours): Temp Pulse Resp BP Pulse Ox 98.1 F 80 19 132/84 100 12/08/18 17:11 12/08/18 17:11 12/08/18 17:11 12/08/18 17:11 12/08/18 17:11 Intake and Output: 12/08/18 12/08/18 06:59 18:59 Intake Total 30 Balance 30 - Medications Medications: Current Medications Acetaminophen (Tylenol 325mg Tab) 650 mg PO Q4H PRN PRN Reason: Pain, Mild (1-3) Hydromorphone HCl (Dilaudid) 0.5 mg IVP Q15M PRN PRN Reason: Pain, Moderate/Severe (4-10) Cefazolin Sodium/Dextrose (Ancef Iv 2 Gm Duplex) 2 gm in 50 mls @ 50 mls/hr IVPB Q8 MAC Last Admin: 12/08/18 13:47 Dose: 50 mls/hr Metoclopramide HCl (Reglan) 10 mg IV ONCE PRN PRN Reason: Nausea/Vomiting Ondansetron HCl (Zofran Inj) 4 mg IVP Q6H PRN PRN Reason: Nausea/Vomiting Oxycodone/Acetaminophen (Percocet 5/325 Mg Tab) 1 tab PO Q4H PRN PRN Reason: Pain, moderate (4-7) Stop: 12/10/18 23:17 Last Admin: 12/08/18 02:01 Dose: 1 tab Oxycodone/Acetaminophen (Percocet 5/325 Mg Tab) 2 tab PO Q4H PRN PRN Reason: Pain, severe (8-10) Stop: 12/10/18 23:17 Last Admin: 12/08/18 16:05 Dose: 2 tab Pantoprazole Sodium (Protonix Ec Tab) 40 mg PO 0600 MAC - Labs Labs: 12/07/18 19:30 12/07/18 19:30 PT 12.6 SECONDS (9.4-12.5) H 12/07/18 19:30 INR 1.14 12/07/18 19:30 APTT 28.7 Seconds (26.9-38.3) 12/07/18 19:30
[2018-12-08] MEDS: Morphine 4 mg/ml ISec IVP SCH (20:58)
[2018-12-08] MEDS ORDERED: Morphine 4 mg/ml ISec IVP PRN (21:30)
[2018-12-09] MEDS: Morphine 4 mg/ml ISec IVP SCH (01:50)
[2018-12-09 02:38] VITALS: RESP 18
[2018-12-09] MEDS ORDERED: Morphine 4 mg/ml ISec IVP PRN (05:30)
[2018-12-09] MEDS: ceFAZolin IV 2 gm in 50 mL D5W IVPB SCH ×2 (05:35→14:07)
[2018-12-09] MEDS ORDERED: Pantoprazole 40 mg EC Tab PO SCH (06:00)
[2018-12-09 06:43] LABS: EOS # 0.1 (0.0-0.7); EOS % 0.5 % (1.5-5.0); HEMOGLOBIN 14.4 g/dL (14.0-18.0); LYMPH # 2.2 (1.2-3.4); LYMPH % 19.6 % (22.0-35.0); MEAN CELL VOLUME 91.4 fl (80.0-105.0); MEAN CORPUSCULAR HEMOGLOBIN 30.3 pg (25.0-35.0); MEAN CORPUSCULAR HGB CONC 33.1 g/dl (31.0-37.0); MEAN PLATELET VOLUME 9.3 fl (7.0-11.0); MONO # 1.2 (0.1-0.6); MONO % 10.5 % (1.0-6.0); RBC 4.76 10^6/uL (3.5-6.1); RED CELL DISTRIBUTION WIDTH 12.9 % (11.5-14.5); WHITE BLOOD COUNT 11.3 10^3/uL (4.5-11.0)
[2018-12-09 07:14] LABS: ALB/GLOB RATIO 1.3 (1.1-1.8); ALBUMIN 3.6 g/dL (3.0-4.8); ALT/SGPT 18 U/L (7-56); AST/SGOT 22 U/L (17-59); BLOOD UREA NITROGEN 8 mg/dL (7-21); CALCIUM 8.8 mg/dL (8.4-10.5); GFR NON-AFRICAN AMERICAN > 60
[2018-12-09 08:27] VITALS: BP 125/72; PULSE 71; TEMP 98.5; O2SAT 96
[2018-12-09] MEDS ORDERED: Oxycodone/Acetaminophen 10/325 mg Tab PO PRN (10:05)
--- NOTE | 2018-12-09 12:01 | CP.PCM.PN ---
Subjective - Date & Time of Evaluation Date of Evaluation: 12/09/18 Time of Evaluation: 11:59 - Subjective Subjective: Progress Note: Dr. Doran 23 year old male patient seen and evaluated at the bedside 2 days S/P ORIF left hand and repair of left hand and left leg lacerations. Patient resting comfortably in bed and in NAD. Patient states that yesterday he had pain 06/08 rthat woke him up and had some chills. He states that the pain is now better and well controlled by pain meds. He denies any overnight F/N/V or SOB Objective - Vital Signs/Intake and Output Vital Signs (last 24 hours): Temp Pulse Resp BP Pulse Ox 98.5 F 71 18 125/72 96 12/09/18 08:27 12/09/18 08:27 12/09/18 08:27 12/09/18 08:27 12/09/18 08:27 Intake and Output: 12/09/18 12/09/18 06:59 18:59 Intake Total 900 Balance 900 - Medications Medications: Current Medications Acetaminophen (Tylenol 325mg Tab) 650 mg PO Q4H PRN PRN Reason: Pain, Mild (1-3) Cefazolin Sodium/Dextrose (Ancef Iv 2 Gm Duplex) 2 gm in 50 mls @ 50 mls/hr IVPB Q8 MAC Last Admin: 12/09/18 05:35 Dose: 50 mls/hr Ketorolac Tromethamine (Toradol) 15 mg IVP Q6H PRN PRN Reason: Pain, moderate (4-7) Ondansetron HCl (Zofran Inj) 4 mg IVP Q6H PRN PRN Reason: Nausea/Vomiting Last Admin: 12/09/18 05:43 Dose: 4 mg Oxycodone/Acetaminophen (Percocet 10/325 Mg Tab) 1 tab PO Q6H PRN PRN Reason: Pain, severe (8-10) Pantoprazole Sodium (Protonix Ec Tab) 40 mg PO 0600 [facility] Last Admin: 12/09/18 05:36 Dose: 40 mg - Labs Labs: 12/09/18 06:00 12/09/18 06:00 PT 12.6 SECONDS (9.4-12.5) H 12/07/18 19:30 INR 1.14 12/07/18 19:30 APTT 28.7 Seconds (26.9-38.3) 12/07/18 19:30 - Constitutional Appears: Non-toxic, No Acute Distress - Head Exam Head Exam: NORMOCEPHALIC - Extremities Exam Additional comments: Left hand splint C/D/I NVS intact, Cap refill < 3 sec to all digits LLE dressing was C/D/I - Neurological Exam Neurological Exam: Alert, Awake, Oriented x3 - Psychiatric Exam Psychiatric exam: Normal Affect, Normal Mood Assessment and Plan - Assessment and Plan (Free Text) Assessment: 23 year old male patient seen and evaluated at the bedside 2 days S/P ORIF left hand and repair of left hand and left leg lacerations. Plan: Patient seen and evaluated Plan discussed with Dr. Doran Charts, labs and vitals reviewed; Afebrile, WBCs 11.4 Left hand X-ray: fracture 3rd and 4th metatarsal bones Left hand X-ray Postoperative: S/P ORIF of left ankle trimalleolar fracture. Continue Elevating and icing of the L upper extremity. LLE dressing left C/D/I. Left hand splint left clean/dry/intact. Patient to follow up with Dr. Doran upon discharge next Wednesday
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
== END 2018-12-09 17:58 | disposition home or self-care (01) ==
LOC: ED 19:22 → SDS 21:19 → 3RNO 12-08 00:32 → SDS 12-08 15:44 → 3RNO 12-08 15:44 → SDS 12-08 23:09
PROVIDERS: ADMIT Internal Medicine; ATTEND Orthopaedic Surgery
DX: S62.393B Other fracture of third metacarpal bone, left hand, initial encounter for open fracture (principal); S62.395B Other fracture of fourth metacarpal bone, left hand, initial encounter for open fracture; S61.422A Laceration with foreign body of left hand, initial encounter; S81.812A Laceration without foreign body, left lower leg, initial encounter; V29.40XA Motorcycle driver injured in collision with unspecified motor vehicles in traffic accident, initial encounter; Y93.I9 Activity, other involving external motion; Y92.410 Unspecified street and highway as the place of occurrence of the external cause
CPT/HCPCS: 10120; 11760; 26615; 36415; 70450; 71045; 71260; 73130; 73590; 73630; 74177; 80053; 81003; 82948; 85025; 85610; 85730; 86850; 86900; 90471; 90715; 93005; 96365; 96366; 96375; 96376; 97116; 97161; 97597; 99285; G0378; G0480; G8978; G8979; G8980; J0330; J0690; J1170; J1885; J2060; J2250; J2270; J2405; J2704; J3010; J7030; J7120; Q9967

== ENCOUNTER 2018-12-16 12:38 | Observation (INO) | payer OTHER, MEDICAID ==
[2018-12-16 12:38] VITALS: BMI 27.2
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
--- NOTE | 2018-12-16 13:45 | RAD ---
Date of service: 12/16/2018 HISTORY: syncope COMPARISON: 12/07/2018 TECHNIQUE: 1 view obtained. FINDINGS: LUNGS: No active pulmonary disease. PLEURA: No significant pleural effusion identified, no pneumothorax apparent. CARDIOVASCULAR: No aortic atherosclerotic calcification present. Normal cardiac size. No pulmonary vascular congestion. OSSEOUS STRUCTURES: No significant abnormalities. VISUALIZED UPPER ABDOMEN: Normal. OTHER FINDINGS: None. IMPRESSION: No active disease.
--- NOTE | 2018-12-16 14:21 | CT ---
Date of service: 12/16/2018 PROCEDURE: CT HEAD WITHOUT CONTRAST. HISTORY: syncope COMPARISON: None available. TECHNIQUE: Axial computed tomography images were obtained through the head/brain without intravenous contrast. Radiation dose: Total exam DLP = 981.96 mGy-cm. This CT exam was performed using one or more of the following dose reduction techniques: Automated exposure control, adjustment of the mA and/or kV according to patient size, and/or use of iterative reconstruction technique. FINDINGS: HEMORRHAGE: No intracranial hemorrhage. BRAIN: No mass effect or edema. No atrophy or chronic microvascular ischemic changes. VENTRICLES: Unremarkable. No hydrocephalus. CALVARIUM: Unremarkable. PARANASAL SINUSES: Unremarkable as visualized. No significant inflammatory changes. MASTOID AIR CELLS: Unremarkable as visualized. No inflammatory changes. OTHER FINDINGS: None. IMPRESSION: No acute findings
[2018-12-16 14:32] LABS: BASO # 0.02 K/mm3 (0.0-2.0); BASO % 0.2 % (0.0-3.0); EOS # 0.1 (0.0-0.7); EOS % 1.3 % (1.5-5.0); HEMOGLOBIN 17.1 g/dL (14.0-18.0); LYMPH # 1.9 (1.2-3.4); LYMPH % 21.8 % (22.0-35.0); MEAN CELL VOLUME 91.4 fl (80.0-105.0); MEAN CORPUSCULAR HEMOGLOBIN 30.6 pg (25.0-35.0); MEAN CORPUSCULAR HGB CONC 33.5 g/dl (31.0-37.0); MEAN PLATELET VOLUME 9.5 fl (7.0-11.0); MONO # 0.6 (0.1-0.6); MONO % 6.7 % (1.0-6.0); RBC 5.58 10^6/uL (3.5-6.1); RED CELL DISTRIBUTION WIDTH 12.5 % (11.5-14.5); WHITE BLOOD COUNT 8.6 10^3/uL (4.5-11.0)
[2018-12-16 14:33] LABS: PH,URINE 6.5 (4.7-8.0); URINE BILIRUBIN NEGATIVE (NEGATIVE); URINE BLOOD NEGATIVE (NEGATIVE); URINE GLUCOSE (UA) NEGATIVE (NEGATIVE); URINE LEUKOCYTE ESTERASE NEGATIVE Leu/uL (NEGATIVE); URINE PROTEIN NEGATIVE mg/dL (<30 mg/dL); URINE UROBILINOGEN 0.2 E.U./dL (<1 E.U./dL)
[2018-12-16 14:35] LABS: URINE APPEARANCE CLEAR (CLEAR); URINE COLOR YELLOW (YELLOW)
[2018-12-16 14:38] LABS: ALB/GLOB RATIO 1.3 (1.1-1.8); ALBUMIN 4.8 g/dL (3.0-4.8); ALT/SGPT 14 U/L (7-56); AST/SGOT 29 U/L (17-59); BLOOD UREA NITROGEN 17 mg/dL (7-21); CALCIUM 9.7 mg/dL (8.4-10.5); GFR NON-AFRICAN AMERICAN > 60
[2018-12-16 14:40] LABS: OPIATES, UR NEGATIVE (NEGATIVE)
[2018-12-16 14:43] LABS: BARBITURATES, UR NEGATIVE (NEGATIVE); BENZODIAZEPINES, UR NEGATIVE (NEGATIVE); PHENCYCLIDINE, UR NEGATIVE (NEGATIVE)
[2018-12-16 14:49] LABS: B-TYPE NATRIURETIC PEPTIDE 35.3 pg/mL (0-450)
--- NOTE | 2018-12-16 14:53 | RAD ---
PROCEDURE: Left Hand Radiographs. HISTORY: post cast removal COMPARISON: None. TECHNIQUE: 3 views obtained. FINDINGS: BONES: The films are obtained through plaster. Longitudinal pins are seen through the 3rd and 4th metacarpals. There is anatomic alignment JOINTS: Normal. No osteoarthritic changes. SOFT TISSUES: Normal. OTHER FINDINGS: None. IMPRESSION: As above
[2018-12-16 14:56] LABS: TROPONIN I < 0.01 ng/mL
[2018-12-16 15:02] LABS: INR 1.05; PARTIAL THROMBOPLASTIN TIME 32.4 Seconds (26.9-38.3); PROTHROMBIN TIME 11.7 SECONDS (9.4-12.5)
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
--- NOTE | 2018-12-16 17:26 | RAD ---
PROCEDURE: Left Hand Radiographs. Four views. HISTORY: w/o splint COMPARISON: Left hand radiographs performed 12/16/18 FINDINGS: Soft tissue swelling. K wires traversing the 3rd and 4th metacarpals. Fracture deformities of the distal 3rd and 4th metacarpal evident. The remainder the visualized osseous structures appear intact. Alignment appears satisfactory. IMPRESSION: Soft tissue swelling. K wires traversing the 3rd and 4th metacarpals. Fracture deformities of the distal 3rd and 4th metacarpal evident.
[2018-12-16] MEDS ORDERED: Oxycodone/Acetaminophen 10/325 mg Tab PO PRN ×2 (17:29→23:44)
[2018-12-16 18:09] VITALS: RESP 18
[2018-12-16] MEDS: Enoxaparin 30 mg Syringe SC SCH (18:15)
[2018-12-16 20:15] VITALS: O2SAT 100
[2018-12-16] MEDS ORDERED: Morphine 2 mg/ml ISec IVP ONE (23:05)
[2018-12-16] MEDS ORDERED: HYDROmorphone 0.5 mg/0.5 ml ISec IVP STA (23:08)
[2018-12-16] MEDS ORDERED: HYDROmorphone 0.5 mg/0.5 ml ISec IVP PRN (23:40)
--- NOTE | 2018-12-17 03:10 | CARD ---
APPROVED REPORT Date of service: 12/16/2018 EKG Measurement Heart [id number] <Conclusion> Normal sinus rhythm Normal ECG
[2018-12-17 03:28] VITALS: TEMP 98.1
[2018-12-17] MEDS: Enoxaparin 30 mg Syringe SC SCH (05:43)
[2018-12-17] MEDS ORDERED: Oxycodone/Acetaminophen 10/325 mg Tab PO PRN (06:18)
[2018-12-17 07:41] LABS: BASO # 0.01 K/mm3 (0.0-2.0); BASO % 0.1 % (0.0-3.0); EOS # 0.1 (0.0-0.7); EOS % 1.8 % (1.5-5.0); HEMOGLOBIN 15.3 g/dL (14.0-18.0); LYMPH # 2.4 (1.2-3.4); LYMPH % 29.9 % (22.0-35.0); MEAN CELL VOLUME 90.2 fl (80.0-105.0); MEAN CORPUSCULAR HEMOGLOBIN 30.5 pg (25.0-35.0); MEAN CORPUSCULAR HGB CONC 33.8 g/dl (31.0-37.0); MONO # 0.8 (0.1-0.6); MONO % 9.5 % (1.0-6.0); RBC 5.02 10^6/uL (3.5-6.1); RED CELL DISTRIBUTION WIDTH 12.5 % (11.5-14.5)
[2018-12-17 07:55] VITALS: BP 126/60; PULSE 58
[2018-12-17 08:46] LABS: ALB/GLOB RATIO 1.2 (1.1-1.8); ALBUMIN 3.6 g/dL (3.0-4.8); ALT/SGPT 10 U/L (7-56); AST/SGOT 16 U/L (17-59); BLOOD UREA NITROGEN 14 mg/dL (7-21); CALCIUM 9.4 mg/dL (8.4-10.5); GFR NON-AFRICAN AMERICAN > 60
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
== END 2018-12-17 11:59 | disposition home or self-care (01) ==
LOC: ED 12:38 → ERH 16:19 → 2RSO 20:48
PROVIDERS: ADMIT Internal Medicine; ATTEND Internal Medicine
DX: R55 Syncope and collapse (principal); R56.9 Unspecified convulsions; S62.303D Unspecified fracture of third metacarpal bone, left hand, subsequent encounter for fracture with routine healing; S62.305D Unspecified fracture of fourth metacarpal bone, left hand, subsequent encounter for fracture with routine healing; V29.09 Motorcycle driver injured in collision with other motor vehicles in nontraffic accident; F12.90 Cannabis use, unspecified, uncomplicated; Z83.3 Family history of diabetes mellitus; Z82.49 Family history of ischemic heart disease and other diseases of the circulatory system
CPT/HCPCS: 36415; 70450; 71045; 73130; 80053; 81003; 83735; 83880; 84100; 84484; 85025; 85378; 85610; 85730; 93005; 96372; 96374; 96375; 99285; G0378; G0480; J1170; J1650; J1885; J2060